=== PATIENT | female | born 1970 | race Caucasian/White ===

== ENCOUNTER 2022-09-09 16:05 | Outpatient (CLI) | payer BC, SELFPAY ==
--- NOTE | ~2022-09-09 | MR_ITS ---
EXAMINATION: MR cervical spine wo con DATE: 09/09/2022 16:44 INDICATION: Neck pain. TECHNIQUE: Magnetic resonance imaging (MRI) of the cervical spine was performed without intravenous c ontrast. Sequences included sagittal T2-weighted FSE, sagittal T2-weighted FS FSE, sagittal T1-weight ed FSE, axial MERGE, and axial T2-weighted FSE. COMPARISON: Cervical spine radiographs 01/12/2005 FINDINGS: There is 5 degrees dextrocurvature of cervicothoracic spine. Vertebral body heights are nor mal. There is mildly decreased disc height at C4-C5 and moderately decreased disc height at C5-C6 and C6-C7. The spinal cord signal intensity is normal. The following disc levels are specifically discus sed: C2-C3: There is a central protrusion. There is no uncovertebral joint osteoarthritis. There is modera te bilateral facet joint osteoarthritis. There is no neural foraminal stenosis. There is no central c anal stenosis. C3-C4: There is a central protrusion. There is mild bilateral uncovertebral joint osteoarthritis. The re is severe right and moderate left facet joint osteoarthritis. There is mild right neural foraminal stenosis. There is mild central canal stenosis. C4-C5: The disc is bulging. There is mild bilateral uncovertebral joint osteoarthritis. There is mild bilateral facet joint osteoarthritis. There is mild right neural foraminal stenosis. There is mild c entral canal stenosis. C5-C6: The disc is bulging. There is moderate right and severe left uncovertebral joint osteoarthriti s. There is mild bilateral facet joint osteoarthritis. There is mild right and moderate left neural f oraminal stenosis. There is mild central canal stenosis. C6-C7: The disc is bulging. There is mild bilateral uncovertebral joint osteoarthritis. There is zaheer re bilateral facet joint osteoarthritis. There is mild bilateral neural foraminal stenosis. There is mild central canal stenosis. C7-T1: The disc does not extend beyond the endplate margin. There is no uncovertebral joint osteoarth ritis. There is mild bilateral facet joint osteoarthritis. There is no neural foraminal stenosis. The re is no central canal stenosis. IMPRESSION: 1. Moderate cervical spondylosis. Reviewed, dictated and finalized at location E. HI DEVELOPER
== END 2022-09-09 16:06 ==
DX: M47.892 Other spondylosis, cervical region (principal)
CPT/HCPCS: 72141

== ENCOUNTER → 2023-02-27 13:22 | Outpatient (CLI) | payer BC, SELFPAY ==
--- NOTE | ~2023-02-27 | US_ITS ---
EXAMINATION: US pelvic complete w TV DATE: 02/27/2023 13:56 INDICATION: Endometrial hyperplasia. Postmenopausal bleeding. Comparison:No prior studies for comparison. TECHNIQUE: Multiple transabdominal and endovaginal sonographic images of the pelvis performed. FINDINGS: The uterus measures 5.8 x 2.5 x 3.1 cm. The endometrial complex measures 4 mm. The right ovary measures 1.8 x 1.6 x 1.6 cm and the left ovary measures 2.6 x 1.3 x 1.3 cm. There ar e small follicles in each ovary. Normal doppler signal in both ovaries. There is no free fluid in the pelvis. There are no abnormal masses seen on either side. IMPRESSION: 1. Unremarkable pelvic ultrasound. Endometrium measures 4 mm. Reviewed, dictated and finalized at location B.
== END ==
PROVIDERS: PCP Nurse Practitioner Family; Visit Provider Nurse Practitioner Family
DX: N85.00 Endometrial hyperplasia, unspecified (principal); N95.1 Menopausal and female climacteric states
CPT/HCPCS: 76830; 76856

== ENCOUNTER 2025-01-13 01:38 | Day surgery (SDC) | payer OTHER, SELFPAY ==
[2025-01-07 15:01] VITALS: BMI 22.8
--- NOTE | 2025-01-07 15:09 | PC.NURSE ---
Report to the Outpatient Waiting Room, entrance under the green pavilion located off [facility], at time _1030_ on date _[id number]_. Planned Procedure Time: _1230_.? Time changes happen often and if your time is changed the preop area will call you the afternoon before. - You and your visitor will be asked to self-screen and do not enter if you have any COVID symptoms. Please call surgeon if you need to reschedule. - A mask is optional within the hospital at this time. Patients may have clear liquids (water, carbonated beverages, clear teas, apple juice) until 3 hours prior to surgery with a maximum of 20 ounces. - No food from midnight until time of surgery and no smoking, or chewing tobacco (or any form of nicotine). No chewing gum, candy or mints. Take only the following medications with a SIP of water on the morning of surgery: ___Flonase____ DO NOT STOP ANY OF YOUR OTHER PRESCRIPTION MEDICATIONS PRIOR TO SURGERY EXCEPT THE FOLLOWING Hold all vitamins and supplements for 3 days per anesthesiologist. Medications to discontinue per physician Please call Dr German and ask if need to hold Ibuprofen and Meloxicam. Date to take last krma___[phone]____ Please no make-up, nail yoruba, hairspray, perfume, deodorant, or body powder the day of surgery.? No jewelry (including any body piercings) or valuables the day of surgery, leave them at home.? Please take a shower or bath the night before, or the morning of, surgery with an antibacterial soap.? Wear comfortable, loose fitting clothing.? - Jewelry must be removed prior to entering the operating room.? Rings and piercings that are not removed may be cut off. - The hospital will not accept responsibility for valuables.? - Please leave all valuables, including medications, at home the day of surgery. If you are going home after surgery, a licensed sales route driver must drive you home.? - NO public transportation without another adult if you receive anesthesia. - We recommend that an adult stay with you for 24 hours following discharge. - We also recommend that you do not drive, make important decision, drink alcoholic beverages, or take any drugs that were not prescribed by your health care provider for at least 24 hours after your discharge time. Follow any additional instructions given to you from your surgeon. Telephone instructions given to ___Amanda__and asked if any additional questions and then verbalized understanding. Patient advised to call surgeon office or pre surgery nurse liaison [phone] if any additional questions.
--- OUTSIDE RECORDS SUMMARY | 2025-01-13 01:41 | XMS_ITS | Clinical Summary ---
Author Organization [facility] Address [address] [place] [address] Phone Care Team Providers Care Manager Environmental Affairs Name Role Phone EFRA GROSS, ODIN Castro Primary Care Provider [phone] Reason for Visit and Chief Complaint CHART UPDATE Problems Includes: Problems addressed during this encounter and other active Problems All Visits Onset Date Resolved Date Provider Condition S tatus Common Migraine Without Aura 11/04/2014 BLANCA HAYWOOD RN Chandana P BC Active Last Documented On 5 9:04AM ; [facility] Plan of Treatment No Plan of Treatment Recorded Assessments Includes: Assessments from this encounter No Assessments Recorded Medical Equipment - Implanted Devices Includes: Current Devices No Medical Equipment Recorded Medications Includes: Medications discussed during this encounter and other current Medications Current Medications (continue as prescribed) Topamax 200 MG OR TABS 11/03/2014 Provider: Diagnosis: Last Documented On 11/03/2014 9:32AM By TANIA OLIVO ; [facility] Past Medications on file Fluconazole 150MG Oral Tablet 12/21/2017 - 12/25/2017 Provider: BLANCA FRAZIER Diagnosis: Acute sinusitis, unspecified 1 daily Pt. is to take 1 now and then repeat in 3 days Last Documented On 8 4:01PM By BLANCA MARIO ; [facility] Azithromycin 250MG Oral Tablet 12/21/2017 - 12/31/2017 Provider: BLANCA MILLER Diagnosis: Acute sinusitis, unspecified TAKE 2 TABS TODAY W/FOOD, TH EN 1 TAB DAILY W/FOOD DIRECTED Last Documented On 8 4:01PM By BLANCA MARIO ; [facility] Fluconazole 150MG Oral Tablet 03/10/2017 - 03/12/2017 Provider: BLANCA HAYWOOD RN OPAL Diagnosis: Acute vaginitis 1 daily Pt. is to take 1 day 4 and 1 tab day 7 Last Documented On 7 1:58PM By BLANCA KEARNS ; [facility] MetroNIDAZOLE 500MG Oral Tablet 03/10/2017 - 03/17/2017 Provider: BLANCA HAYWOOD RN OPAL Diagnosis: Acute vaginitis One tablet twice a day ONE T WICE DAILY WITH FOOD NO ETOH Last Documented On 7 12:52PM By BLANCA KEARNS ; [facility] Fluconazole 150 MG Tablet 07/26/2016 - 07/30/2016 Prov ider: BLANCA HAYWOOD RN OPAL Diagnosis: Acute vaginitis 1 daily Pt. is to take 1 now and then repeat in 3 days Last Documented On 6 8:54AM By BLANCA KEARNS ; [facility] Fluconazole 150 MG Tablet 12/31/2014 - 01/04/2015 Provider: BLANCA HAYWOOD RN OPAL Diagnosis: CANDIDAL VULVOVA GINITIS as directed TAKE ONE TAB EVERY OTHER DAY X 3 Last Documented On 5 3:49PM By BLANCA KEARNS ; [facility] Ondansetron 4 MG Tablet Dispersible 12/31/2014 - 01/30/2015 Provider: JULIANN KEARNS Diagnosis: NAUSEA WITH VOMI TING 1 po q 8 hrs prn Last Documented On 5 1:54PM By JULIANN KEARNS ; [facility] medroxyPROGESTERone Acetate 2.5 MG OR TABS 11/04/2014 - 02/02/2015 Provider: BLANCA HAYWOOD RN OPAL Diagnosis: Sympt [place] PLEASE DISPENSE FROM $4 LIST THANKS Last Documented On 5 9:03AM By BLANCA MARIO ; [facility] Evamist 1.53 MG/SPRAY TD SOLN 11/04/2014 - 01/18/2015 Provider: BLANCA HAYWOOD RN OPAL Diagnosis: Sympt Fem [place] 1 SPRAY TO INNER FORARM ONCE DAILY DIRECTED Last Documented On 5 9:03AM By BLANCA KEARNS ; [facility] Flagyl 500 MG OR TABS 12/09/2013 - 12/16/2013 Provider : JULIANN MARIO Diagnosis: VAGINITIS NOS Last Documented On 4 10:42AM By JULIANN MARIO ; [facility] Lotrisone 1-0.05% EX CREA 05/20/2013 - 07/19/2013 Prov ider: JULIANN FRAZIER-BC Diagnosis: Apply externally to affected area TID Last Documented On 3 2:54PM By JULIANN MARIO ; [facility] Femhrt 1/5 1-5 MG-MCG OR TABS 08/24/2012 - 02/20/2013 Provider: JULIANN MARIO Diagnosis: Last Documented On 2 3:21PM By JULIANN MARIO ; [facility] Terazol 7 0.4% VA CREA 06/22/2012 - 07/22/2012 Provide r: JULIANN FRAZIER-BC Diagnosis: Insert one applicator vagina lly q hs x 7 nocs - ok to substitute if non-formulary Last Documented On 2 2:36PM By JULIANN MARIO ; [facility] Diflucan 150 MG OR TABS 06/22/2012 - 07/22/2012 Provid er: JULIANN FRAZIER-PAUL Diagnosis: Take one dose po x 1 and repeat in 3 days Last Documented On 2 2:36PM By JULIANN MARIO ; [facility] Flagyl 500 MG OR TABS 06/11/2011 - 06/18/2011 Provider : JULIANN MARIO Diagnosis: Last Documented On 1 11:21AM By JULIANN MARIO ; [facility] Diflucan 150 MG OR TABS 02/17/2010 - 03/19/2010 Provid er: JULIANN FRAZIER-BC Diagnosis: take one po x 1 - may repeat in 3 days if needed . Last Documented On 0 4:46PM By JULIANN MARIO ; [facility] Alcortin A 1-2-1% EX GEL 01/28/2010 - 04/28/2010 Provi mer: [facility]-BC,CNM Diagnosis: Apply to affected area 3-4 x day Last Documented On 01/28/2010 2:04PM By CORONA HOLLOWAY ; [facility] Medications Administered Includes: Administered Medications from this encounter No Administered Medications Recorded Results Includes: Results discussed during this encounter No Results Recorded For Specified Dates History of Present Illness Includes: History of Present Illness from this encounter No History of Present Illness Recorded Social History No Social History Recorded - Smoking Status Unknown Procedures and Surgical History Surgical History Last Updated Surgical / procedural history TONSILECTO MY 11/03/2014 Last Documented On 7 4:01PM ; [facility] Medical History Includes: Medical History addressed during this encounter Description Last Updated History of menopause 11/03/2014 Last Documented On 7 4:01PM ; [facility] 0 11/03/2014 Last Documented On 7 4:01PM ; [facility] Last mammogram date: 09/23/2013 11/03/19 15 Last Documented On 7 4:01PM ; [facility] Last pap smear date 05/05/2014 11/03/2014 Last Documented On 7 4:01PM ; [facility] Result: normal 11/03/2014 Last Documented On 7 4:01PM ; [facility] History of Pap smear done 07/09/2014 Last Documented On 7 4:01PM ; [facility] Not using contraception 10/28/2014 Last Documented On 7 4:01PM ; [facility] Result: normal 10/28/2014 Last Documented On 7 4:01PM ; [facility] LMP: 07/21/2014 10/28/2014 Last Documented On 7 4:01PM ; [facility] Family History Includes: Family History addressed during this encounter Description Last Updated No family history of malignant female br east neoplasm 09/05/2011 Last Documented On 7 4:01PM ; [facility] No family history of malignant neoplasm of the large intestine 09/05/2011 Last Documented On 7 4:01PM ; [facility] No family history of malignant neoplasm of the ovary 09/05/2011 Last Documented On 7 4:01PM ; [facility] Review of Systems Includes: Review of Systems from this encounter No Review of Systems Recorded Mental Status Includes: Mental Status from this encounter No Mental Status Recorded Functional Status Includes: Functional Status from this encounter No Functional Status Recorded Physical Exam Includes: Physical Exam from this encounter No Physical Exam Recorded Allergies Includes: Active Allergies Substance Type Reaction Onset Date Resolved Date Statu s Codeine Allergy Nausea, Vomiting , Diarrhea / Diarrheal disorder, BREAK INTO A SWEAT 11/03/2014 Active Last Documented On 5 9:33AM ; [facility] Encounters Encounter Provider Location Date Check-In Time Check-Out Time Diagnosis CHART UPDATE BLANCA HAYWOOD RN [facility] 09/26/2017 4:01PM 11:59PM Insurance Includes: Active Insurance Policies Plan Name Member ID Group # Subscriber Relationship Effect farida Dates 1 - [facility] [id number] AMI CARRILLO Self Clinical Notes Includes: Clinical Notes from this encounter No Clinical Notes Recorded
--- OUTSIDE RECORDS SUMMARY | 2025-01-13 01:41 | XMS_ITS ---
Author Organization [facility] Address [address] [place] [address] Care Team Providers Care Outside Machinist Helper Name Role Phone zzzzMigration, zzzzProvider Unavailable Unav ailable REASON FOR VISIT EMR-[facility]quiles Encounters Encounter Location Date Provider Diagnosis [facility] [address] [place] [address] 2023 zzzzProvider zzzzMigration Plan Of Treatment No Information Progress Notes * CARRILLOPaige KempDOB:1970 ( 54 yo F)Acc No.[id number] Patient: S Paige PENN :1970 A ge:53 Y S ex:Female Phone: Address:[address] [place] [address], [phone] Subjective: * Chief Complaints: * E MR-Aquiles * Medical History: * Surgical History: * Hospitalization/Major Diagno stic Procedure: * Medications: Objective: * Vitals: * Physical Examination: Assessment: Plan: * Treatment: * Procedure Codes: * true * Date: Generated for Yobani contreras/Rachelle/eTransmitting on: 0 01/13/2025 01:41 AM CDT
--- OUTSIDE RECORDS SUMMARY | 2025-01-13 01:41 | XMS_ITS ---
Author Organization [facility] Address [address], [place] [address] Care Team Providers Care Poultry Husbandman Name Role Phone zzzzMigration, zzzzProvider Unavailable Unav ailable Allergies Allergen (clinical drug ingredient) Drug/Non Drug Allergy documented on EMR Reaction Allergy Type Onset Date Status codeine Codeine Unknown Drug Allergy 10/21/2021 Active REASON FOR VISIT [facility] Medic[place] Medication SIG (Take, Route, Fr equency, Duration) Notes Start Date End Date Status Phentermine HCl 37.5 MG take 1 tablet (3 7.5 mg) by oral route once daily before breakfast Oral 1 Active Topamax 100 MG take 1 tablet (100 m g) by oral route 2 times per day Oral 2 Active Encounters Encounter Location Date Provider Diagnosis [facility] [address], [place] [address] 07/30/2023 zzzzProvider zzzzMigration Plan Of Treatment No Information Progress Notes * Paige CARRILLODOB:1970 ( 54 yo F)Acc No.[id number]:07/30/2023 Patient: S Paige PENN :1970 A ge:53 Y S ex:Female Phone: Address:[address] [place] [address], [phone] Subjective: * Chief Complaints: * E MR-Aquiles * Medical History: * Surgical History: A nkle surgery; [id number] augmentation; 2021-10-21 * Hospitalization/Major Diagno stic Procedure: * Family History: F ather: Hypertension Notes: alive , Stroke Notes: alive . M other: Heart Disease Notes: alive , Hypothyroidism Notes: alive . * Social History: M igrated Social History: M igrated Social History: :: No Children , Marital Status :: Single , Substance Use :: Alcohol,socially :: Light , Substance Use :: Caffeine :: Light , Substance Use :: Denies illicit substance abuse :: Never , Substance Use :: Tobacco :: Never. * Medications: T akingPhentermine HCl 37.5 MG Tablet take 1 tablet (37.5 mg) by oral route once daily before breakfast Oral 1 Topamax 100 MG Tablet take 1 tablet (100 mg) by oral route 2 times per day Oral 2 Taking Phentermine HCl 37.5 MG Tablet take 1 tablet (37.5 mg) by oral route once daily before breakfast Oral 1 Taking Topamax 100 MG Tablet take 1 tablet (100 mg) by oral route 2 times per day Oral 2 * Allergies: C odeine: Allergy - Onset Date 10/21/2021 Objective: * Vitals: * Physical Examination: Assessment: Plan: * Treatment: * Procedure Codes: * true * Date: Generated for Yobani contreras/Rachelle/Alyce on: 0 01/13/2025 01:41 AM CDT
--- OUTSIDE RECORDS SUMMARY | 2025-01-13 01:41 | XMS_ITS | Clinical Summary ---
Author Organization [facility] Address [address] [place] [address] Care Team Providers Care Trailer Truck Driver Name Role Phone Thierno Lucero MD Unavailable [phone] Sayra Mcdonough MD Unavailable [phone] Leydi Montano DO Primary Care Provider [phone] Source Comments [facility],non-owned Affiliates and Associated Physician Practices is amultiple site organization consisting of ambulatory clinics and hospital sitesin [place], [place], [place] and [place]. This disclosure is being madepursuant to the Care Everywhere program and may not contain all information available regarding this patient. Last updated 18.[facility] Allergies No known active allergies Medications * Be aware that medications may not be up to date on this document. Alwaysverify current medications with the patient. Medication Sig Dispensed Refills Start Date End Date Status Probiotic Product (PROBIOTIC DAILY) capsule Take 2 Caps by mouth once daily 04/13/2016 Active domperidone (MOTILIUM) 10 mg tablet Take 1 Tab by mouth once daily 04/13/2016 Active vitamin D3-cholecalciferol (CHOLECACIFEROL) 1000 UNITS tablet Take 2.5 Tabs by mouth once daily 04/13/2016 Active Pyridoxine HCl (B-6) 100 MG Take 1 Tab by mouth once daily 04/13/2016 Active fluticasone propionate (Flonase) 50 MCG/ACT nasal spray SHAKE LIQUID AND USE 1 SPRAY IN EACH NOSTRIL TWICE DAILY 06/15/2022 Active montelukast (Singulair) 10 MG tablet Take 1 (one) tablet by mouth at bedtime 05/10/2022 Active Multiple Vitamin (Multi-Vitamins) TABS Take 1 (one) tablet by mouth once daily Active Cyanocobalamin (B-12 Compliance Injection) 1000 MCG/ML 12/07/2022 Active Vyvanse 40 MG capsule Take 50 mg by mouth once daily 08/18/2023 Active meloxicam (Mobic) 15 MG tablet Take 50 mg by mouth once daily 09/12/2023 Active rimegepant (Nurtec ODT) 75 MG tablet Take 1 tablet every other day for headache prevention. 16 tablet 3 11/01/2023 Active traZODone (Desyrel) 100 MG tablet Take 1 (one) tablet by mouth nightly as needed For insomnia. 12/30/2023 Active traMADol HCl 100 MG TABS TAKE 1 TABLET BY MOUTH TWICE DAILY NEEDED FOR SEVERE PAIN 09/13/2023 Active Progesterone 100 MG capsule Take 1 (one) capsule by mouth every evening 01/07/2024 Active lidocaine (Xylocaine) 5 % ointment APPLY TOPICALLY THREE TIMES DAILY NEEDED 09/22/2023 Active loratadine (Claritin) 10 MG tablet 08/29/2022 Active esomeprazole (NexIUM) 20 MG capsule Take 1 (one) capsule by mouth once daily Active ibuprofen (Motrin) 600 MG tablet 08/09/2022 Active Biotin 10 MG 07/22/2023 Active Active Problems Problem Noted Date Diagnosed Date Abnormal thyroid blood test 04/13/2016 Gastroparesis 04/13/2016 Premature ovarian failure 04/13/2016 Chronic cluster headache, not intractable 2015 Encounters Date Type Department Care Team Description 01/10/[address] [phone] Zeke Payan MD Refill Request 11/01/2024 8:00 AM SENIOR CARE SPECIALIST Procedure visit [address] [phone] Zeke Payan MD Intractable chronic migraine without aura and without status migrainosus from Last 3 Months Family History Medical History Relation Name Comments Heart Disease Brother 1 Asthma Brother 2 Stroke Father Heart Disease Mother Osteoporosis Mother Stroke Mother Thyroid Disease Mother hypothyroidi sm Diabetes Neg Hx Relation Name Status Comments Brother 1 Brother 2 Father Mother Social History Tobacco Use Types Packs/Day Years Used Date Smoking Tobacco: Never Tobacco Cessation:Counseling Given: Not Answered Alcohol Use Standard Drinks/Week Comments Yes 3 (1 standard drink = 0.6 oz pur e alcohol) Sex and Gender Information Value Date Recorded Sex Assigned at Not on file Gender Identity Not on file Sexual Orientation Not on file Last Filed Vital Signs Vital Sign Reading Time Taken Comments Blood Pressure 130/80 11/01/2023 2:45 PM SENIOR CARE SPECIALIST Pulse 77 04/18/2024 8:43 AM CDT Temperature 37 C (98.6 F) 11/01/2023 2:45 PM SENIOR CARE SPECIALIST Respiratory Rate 16 11/01/2024 8:11 AM SENIOR CARE SPECIALIST Oxygen Saturation 92% 04/18/2024 8:43 AM CDT Inhaled Oxygen Concentration - - Weight 67.6 kg (149 lb) 11/01/2024 8:11 AM SENIOR CARE SPECIALIST Height 172.7 cm (5' 8 ) 11/01/2024 8:11 AM SENIOR CARE SPECIALIST Body Mass Index 22.66 11/01/2024 8:11 AM SENIOR CARE SPECIALIST Plan of Treatment Upcoming Encounters Date Type Department Care Team (Late st Contact Info) Description 01/24/2025 8:00 AM CDT Procedure visit [facility] [address] [facility] [place] [address] [place] [phone] [place] [id number] [id number] Health Maintenance Due Date Last Done Comments COLOGUARD (AGES 45-75) - COLON CA SCREENING [address] COLONOGRAPHY - COLON CA SCREENING 1972 FIT - COLON CA SCREENING 1972 FLEX SIG - COLON CA SCREENING 1972 LIPID TESTING 1972 PAP SMEAR 1972 HIV SCREENING 1987 HEPATITIS C SCREENING 07/25/1990 DTAP/TDAP/TD VACCINES (1 - Tdap) 1991 HEPATITIS B VACCINE (1 of 3 - 19+ 3-dose series) 1991 PNEUMOCOCCAL VACCINE 50+ (1 of 1 - PCV) 2022 ZOSTER VACCINE (1 of 2) 2022 COVID-19 VACCINE (1 - 2024-25 season) 2024 DEPRESSION SCREENING 10/09/2024 INFLUENZA VACCINE (Season Ended) 2025 06/23/2023, 07/16/2022, 09/14/2021, Additional history exists MAMMOGRAM 09/21/2025 09/21/2023, 09/08, 06/04/2022, Additional history exists COLONOSCOPY - COLON CA SCREENING 05/23/2034 05/23/2024 Colorectal Cancer Screening 05/23/2034 HIB VACCINE Aged Out No longer eligi ble based on patient's age to complete this topic HPV VACCINE Aged Out No longer eligi ble based on patient's age to complete this topic MENINGOCOCCAL (Group B) VACCINE SHARED DECISION-MAKING Aged Out No longer eligible based on patient's age to complete this topic MENINGOCOCCAL GROUPS A/C/Y/W VACCINE Aged Out No longer eligible based on patient's age to complete this topic Care Teams Trailer Truck Driver Relationship Specialty Start Date End Date Leydi Montano DO [address] [facility] [address] [place], [place] [id number] PCP - General Family Medicine 05/12/22 Thierno Lucero MD [address] [place] [address] Gastroenterology 08/24/16 [place] [address] [facility] [place] [address] [place] [address] Endocrinology 08/24/16
--- OUTSIDE RECORDS SUMMARY | 2025-01-13 01:41 | XMS_ITS | Clinical Summary ---
Author Organization [facility] Address [address] [place] [address] Phone Care Team Providers Care Bodywork Therapist Name Role Phone EFRA GROSS, ODIN Castro Primary Care Provider [phone] Reason for Visit and Chief Complaint CHART UPDATE Problems Includes: Problems addressed during this encounter and other active Problems All Visits Onset Date Resolved Date Provider Condition S tatus Common Migraine Without Aura 11/04/2014 BLANCA HAYWOOD RN Chandana [facility] Active Last Documented On 5 9:04AM ; [facility] Plan of Treatment No Plan of Treatment Recorded Assessments Includes: Assessments from this encounter No Assessments Recorded Medical Equipment - Implanted Devices Includes: Current Devices No Medical Equipment Recorded Medications Includes: Medications discussed during this encounter and other current Medications New / Renewed during this visit BLANCA FRAZIER BC on 12/31/2014 Fluconazole 150 MG Tablet Provider: FREDY FRAZIER BC 4 day supply: 3 tablet, 0 refills Diagnosis: CANDIDAL VULVOVAGINITIS as directed TAKE ONE TAB ALLISON RY OTHER DAY X 3 Pharmacy: [place] [address] [address] [facility] [phone] - Last Documented On 5 3:49PM By BLANCA MARIO ; [facility] Current Medications (continue as prescribed) Topamax 200 MG OR TABS 11/03/2014 Provider: Diagnosis: Last Documented On 11/03/2014 9:32AM By TANIA OLIVO ; [facility] Past Medications on file Fluconazole 150MG Oral Tablet 12/21/2017 - 12/25/2017 Provider: BLANCA FRAZIER BC Diagnosis: Acute sinusitis, unspecified 1 daily Pt. is to take 1 now and then repeat in 3 days Last Documented On 8 4:01PM By BLANCA HAYWOOD ISHAAN ; [facility] Azithromycin 250MG Oral Tablet 12/21/2017 - 12/31/2017 Provider: BLANCA HAYWOOD RN OPAL Diagnosis: Acute sinusitis, unspecified TAKE 2 TABS TODAY W/FOOD, TH EN 1 TAB DAILY W/FOOD DIRECTED Last Documented On 8 4:01PM [facility] Fluconazole 150MG Oral Tablet 03/10/2017 - 03/12/2017 Provider: BLANCA HAYWOOD RN OPAL Diagnosis: Acute vaginitis 1 daily Pt. is to take 1 day 4 and 1 tab day 7 Last Documented On 7 1:58PM By BLANCA KEARNS ; [facility] MetroNIDAZOLE 500MG Oral Tablet 03/10/2017 - 03/17/2017 Provider: BLANCA HAYWOOD RN OPAL Diagnosis: Acute vaginitis One tablet twice a day ONE T WICE DAILY WITH FOOD NO ETOH Last Documented On 7 12:52PM By BLANCA KEARNS ; [facility] Fluconazole 150 MG Tablet 07/26/2016 - 07/30/2016 Prov ider: BLANCA HAYWOOD RN OPAL Diagnosis: Acute vaginitis 1 daily Pt. is to take 1 now and then repeat in 3 days Last Documented On 6 8:54AM By BLANCA HAYWOOD ISHAAN ; [facility] Ondansetron 4 MG Tablet Dispersible 12/31/2014 - 01/30/2015 Provider: JULIANN KEARNS Diagnosis: NAUSEA WITH VOMI TING 1 po q 8 hrs prn Last Documented On 5 1:54PM By JULIANN [facility]IGUEZ [facility] ; [facility] medroxyPROGESTERone Acetate 2.5 MG OR TABS 11/04/2014 - 02/02/2015 Provider: BLANCA HAYWOOD RN OPAL Diagnosis: Sympt [place] PLEASE DISPENSE FROM $4 LIST THANKS Last Documented On 5 9:03AM By BLANCA HAYWOOD ISHAAN ; [facility] Evamist 1.53 MG/SPRAY TD SOLN 11/04/2014 - 01/18/2015 Provider: BLANCA HAYWOOD RN NP BC Diagnosis: Sympt Fem [place] 1 SPRAY TO INNER FORARM ONCE DAILY DIRECTED Last Documented On 5 9:03AM By BLANCA HAYWOOD OPAL- ; [facility] Flagyl 500 MG OR TABS 12/09/2013 - 12/16/2013 Provider : JULIANN KEARNSBC Diagnosis: VAGINITIS NOS Last Documented On 4 10:42AM By JULIANN MARIO ; [facility] Lotrisone 1-0.05% EX CREA 05/20/2013 - 07/19/2013 Prov ider: JULIANN FRAZIER-BC Diagnosis: Apply externally to affected area TID Last Documented On 3 2:54PM By JULIANN MARIO ; [facility] Femhrt 1/5 1-5 MG-MCG OR TABS 08/24/2012 - 02/20/2013 Provider: JULIANN MARIO Diagnosis: Last Documented On 2 3:21PM By JULIANN MARIO ; [facility] Terazol 7 0.4% VA CREA 06/22/2012 - 07/22/2012 Provide r: JULIANN FRAZIER-BC Diagnosis: Insert one applicator vagina lly q hs x 7 nocs - ok to substitute if non-formulary Last Documented On 2 2:36PM By JULIANN MARIO ; [facility] Diflucan 150 MG OR TABS 06/22/2012 - 07/22/2012 Provid er: JULIANN FRAZIER-BC Diagnosis: Take one dose po x 1 and repeat in 3 days Last Documented On 2 2:36PM By JULIANN MARIO ; [facility] Flagyl 500 MG OR TABS 06/11/2011 - 06/18/2011 Provider : JULIANN MARIO Diagnosis: Last Documented On 1 11:21AM By JULIANN MARIO ; [facility] Diflucan 150 MG OR TABS 02/17/2010 - 03/19/2010 Provid er: JULIANN FRAZIER-BC Diagnosis: take one po x 1 - may repeat in 3 days if needed . Last Documented On 0 4:46PM By JULIANN RODRIGUEZ [facility] ; [facility] Alcortin A 1-2-1% EX GEL 01/28/2010 - 04/28/2010 Provi mer: [facility] Diagnosis: Apply to affected area 3-4 x day Last Documented On 01/28/2010 2:04PM By CORONA HOLLOWAY ; [facility] Medications Administered Includes: Administered Medications [...] history TONSILECTO MY 11/03/2014 Last Documented On 5 3:47PM ; [facility] Medical History Includes: Medical History addressed during this encounter Description Last Updated History of menopause 11/03/2014 Last Documented On 5 3:47PM ; [facility] 0 11/03/2014 Last Documented On 5 3:47PM ; [facility] Last mammogram date: 09/23/2013 11/03/19 15 Last Documented On 5 3:47PM ; [facility] Last pap smear date 05/05/2014 11/03/2014 Last Documented On 5 3:47PM ; [facility] Result: normal 11/03/2014 Last Documented On 5 3:47PM ; [facility] History of Pap smear done 07/09/2014 Last Documented On 5 3:47PM ; [facility] Not using contraception 10/28/2014 Last Documented On 5 3:47PM ; [facility] Result: normal 10/28/2014 Last Documented On 5 3:47PM ; [facility] LMP: 07/21/2014 10/28/2014 Last Documented On 5 3:47PM ; [facility] Family History Includes: Family History addressed during this encounter No Family History Recorded Review of Systems Includes: Review of Systems [...] Active Last Documented On 5 9:33AM ; [facility] Encounters Encounter Provider Location Date Check-In Time Check-Out Time Diagnosis CHART UPDATE BLANCA HAYWOOD RN [facility] 12/31/2014 3:47PM 11:59PM Insurance Includes: Active Insurance Policies Plan Name Member ID Group # Subscriber Relationship Effect farida Dates 1 - [facility] [id number] AMI CARRILLO Self Clinical Notes Includes: Clinical Notes from this encounter No Clinical Notes Recorded
--- OUTSIDE RECORDS SUMMARY | 2025-01-13 01:42 | XMS_ITS | Clinical Summary ---
Author Organization [facility] Address [address] 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
--- OUTSIDE RECORDS SUMMARY | 2025-01-13 01:42 | XMS_ITS ---
Author Organization [facility] Address [address] [place] [address] Phone Care Team Providers Care Apprise Counselor Name Role Phone EFRA GROSS, ODIN Castro Primary Care Provider [phone] Problems Includes: Active, inactive, and resolved Problems All Visits Onset Date Resolved Date Provider Condition S tatus Common Migraine Without Aura 11/04/2014 BLANCA HAYWOOD RN [facility] P Active Last Documented On 5 9:04AM ; [facility] Plan of Treatment Findings Encounter Date Since pt. states h/o recurre nt yeast, we will go ahead and treat pt. and partner with diflucan and if no improvement, possibly work up for diabetes. Ami is agreeable to this plan PROBLEM VISIT with JULIANN RODRIGUEZ [facility]- 12/22/2011 Last Documented On 2 9:36AM ; [facility] Instructions to patient Instructions for patient : K eep the area around the vulva dry. Allow the area to have exposure to air. Avoid irritants such as fabric softeners and perfumed soaps.~ Last Documented On 3 8:19AM ; [facility] Advised d/c scented bath pro ducts Last Documented On 3 8:19AM ; [facility] Instructions For Patient: pe lvic rest until test results back Last Documented On 3 8:18AM ; [facility] Instructions for patient : K eep the area around the vulva dry. Allow the area to have exposure to air. Avoid irritants such as fabric softeners and perfumed soaps.~ Last Documented On 2 9:26AM ; [facility] Advised d/c scented bath pro ducts Last Documented On 2 9:26AM ; [facility] Instructions for patient : K eep the area around the vulva dry. Allow the area to have exposure to air. Avoid irritants such as fabric softeners and perfumed soaps.~ Last Documented On 1 8:37AM ; [facility] Advised d/c scented bath pro ducts Last Documented On 1 8:37AM ; [facility] Instructions for patient : K eep the area around the vulva dry. Allow the area to have exposure to air. Avoid irritants such as fabric softeners and perfumed soaps.~ Last Documented On 1 8:22AM ; [facility] Advised d/c scented bath pro ducts Last Documented On 1 8:22AM ; [facility] Education and Decision Aids were provided during visit for: Patient counseling : STD pre vention. I discussed with the patient that condoms can reduce the chance of getting an STD but not eliminate it. Increased exposure from multiple sex partners also discussed Last Documented On 3 8:18AM ; [facility] Candidiasis Vulvovaginitis I nformation Sheet Given Last Documented On 2 9:26AM ; [facility] Candidiasis Vulvovaginitis I nformation Sheet Given Last Documented On 1 8:36AM ; [facility] Assessments Includes: Assessments for all patient encounters Findings Encounter Date Symptomatic menopause CONSULTATION with BLANCA HAYWOOD RN [facility] 11/03/2014 Last Documented On 5 9:07AM ; [facility] Secondary amenorrhea CHART UPDATE with BLANCA PASCAL RN [facility] 10/28/2014 Last Documented On 5 11:52AM ; [facility] Polina albicans vulvovaginitis PROBLEM VISIT wi JULIANN RODRIGUEZ [facility] 12/22/2011 Last Documented On 2 9:36AM ; [facility] Polina albicans vulvovaginitis PROBLEM VISIT wi JULIANN RODRIGUEZ [facility] 09/05/2011 Last Documented On 1 8:37AM ; [facility] Polina albicans vulvovaginitis PROBLEM VISIT wi JULIANN RODRIGUEZ [facility]- 06/09/2011 Last Documented On 1 8:37AM ; [facility] Instructions Includes: Instructions for all patient encounters Instructions to patient Instructions for patient : K eep the area around the vulva dry. Allow the area to have exposure to air. Avoid irritants such as fabric softeners and perfumed soaps.~ Last Documented On 3 8:19AM ; [facility] Advised d/c scented bath pro ducts Last Documented On 3 8:19AM ; [facility] Instructions For Patient: pe lvic rest until test results back Last Documented On 3 8:18AM ; [facility] Instructions for patient : K eep the area around the vulva dry. Allow the area to have exposure to air. Avoid irritants such as fabric softeners and perfumed soaps.~ Last Documented On 2 9:26AM ; [facility] Advised d/c scented bath pro ducts Last Documented On 2 9:26AM ; [facility] Instructions for patient : K eep the area around the vulva dry. Allow the area to have exposure to air. Avoid irritants such as fabric softeners and perfumed soaps.~ Last Documented On 1 8:37AM ; [facility] Advised d/c scented bath pro ducts Last Documented On 1 8:37AM ; [facility] Instructions for patient : K eep the area around the vulva dry. Allow the area to have exposure to air. Avoid irritants such as fabric softeners and perfumed soaps.~ Last Documented On 1 8:22AM ; [facility] Advised d/c scented bath pro ducts Last Documented On 1 8:22AM ; [facility] Education and Decision Aids were provided during visit for: Patient counseling : STD pre vention. I discussed with the patient that condoms can reduce the chance of getting an STD but not eliminate it. Increased exposure from multiple sex partners also discussed Last Documented On 3 8:18AM ; [facility] Candidiasis Vulvovaginitis I nformation Sheet Given Last Documented On 2 9:26AM ; [facility] Candidiasis Vulvovaginitis I nformation Sheet Given Last Documented On 1 8:36AM ; [facility] Medical Equipment - Implanted Devices Includes: Current and historical Devices No Medical Equipment Recorded Medications Includes: Current and historical Medications Current Medications (continue as prescribed) Topamax 200 MG OR TABS 11/03/2014 Provider: Diagnosis: Last Documented On 11/03/2014 9:32AM By TANIA OLIVO ; [facility] Past Medications on file Fluconazole 150MG Oral Tablet 12/21/2017 - 12/25/2017 Provider: BLANCA HAYWOOD RN [facility] Diagnosis: Acute sinusitis, unspecified 1 daily Pt. is to take 1 now and then repeat in 3 days Last Documented On 8 4:01PM By BLANCA KEARNS ; [facility] Azithromycin 250MG Oral Tablet 12/21/2017 - 12/31/2017 Provider: BLANCA HAYWOOD RN [facility] Diagnosis: Acute sinusitis, unspecified TAKE 2 TABS TODAY W/FOOD, TH EN 1 TAB DAILY W/FOOD DIRECTED Last Documented On 8 4:01PM By BLANCA MARIO ; [facility] Fluconazole 150MG Oral Tablet 03/10/2017 - 03/12/2017 Provider: BLANCA FRAZIER Diagnosis: Acute vaginitis 1 daily Pt. is to take 1 day 4 and 1 tab day 7 Last Documented On 7 1:58PM By BLANCA MARIO ; [facility] MetroNIDAZOLE 500MG Oral Tablet 03/10/2017 - 03/17/2017 Provider: BLANCA FRAZIER Diagnosis: Acute vaginitis One tablet twice a day ONE T WICE DAILY WITH FOOD NO ETOH Last Documented On 7 12:52PM By BLANCA MARIO ; [facility] Fluconazole 150 MG Tablet 07/26/2016 - 07/30/2016 Prov ider: BLANCA HAYWOOD RN [facility] Diagnosis: Acute vaginitis 1 daily Pt. is to take 1 now and then repeat in 3 days Last Documented On 6 8:54AM By BLANCA MARIO ; [facility] Fluconazole 150 MG Tablet 12/31/2014 - 01/04/2015 Provider: BLANCA HAYWOOD RN [facility] Diagnosis: CANDIDAL VULVOVA GINITIS as directed TAKE ONE TAB EVERY OTHER DAY X 3 Last Documented On 5 3:49PM By BLANCA MARIO ; [facility] Ondansetron 4 MG Tablet Dispersible 12/31/2014 - 01/30/2015 Provider: JULIANN KEARNS Diagnosis: NAUSEA WITH VOMI TING 1 po q 8 hrs prn Last Documented On 5 1:54PM By JULIANN MARIO ; [facility] medroxyPROGESTERone Acetate 2.5 MG OR TABS 11/04/2014 - 02/02/2015 Provider: BLANCA HAYWOOD RN [facility] BC Diagnosis: Sympt [place] PLEASE DISPENSE FROM $4 LIST THANKS Last Documented On 5 9:03AM By BLANCA MARIO ; [facility] Evamist 1.53 MG/SPRAY TD SOLN 11/04/2014 - 01/18/2015 Provider: BLANCA HAYWOOD RN [facility] BC Diagnosis: Sympt Fem [place] 1 SPRAY TO INNER FORARM ONCE DAILY DIRECTED Last Documented On 5 9:03AM By BLANCA MARIO ; [facility] Flagyl 500 MG OR TABS 12/09/2013 - 12/16/2013 Provider : JULIANN MARIO Diagnosis: VAGINITIS NOS Last Documented On 4 10:42AM By JULIANN MARIO ; [facility] Lotrisone 1-0.05% EX CREA 05/20/2013 - 07/19/2013 Prov ider: JULIANN MARIO Diagnosis: Apply externally to affected area TID Last Documented On 3 2:54PM By JULIANN MARIO ; [facility] Flagyl 500 MG OR TABS 02/07/2013 - 12/09/2013 Provider : JULIANN MARIO Diagnosis: VAGINITIS NOS Last Documented On 4 10:41AM By JULIANN MARIO ; [facility] Femhrt 1/5 1-5 MG-MCG OR TABS 08/24/2012 - 02/20/2013 Provider: JULIANN FRAZIER-BC Diagnosis: Last Documented On 2 3:21PM By JULIANN MARIO ; [facility] Terazol 7 0.4% VA CREA 06/22/2012 - 07/22/2012 Provide r: JULIANN RODRIGUEZ WHNP-BC Diagnosis: Insert one applicator vagina lly q hs x 7 nocs - ok to substitute if non-formulary Last Documented On 2 2:36PM By JULIANN MARIO ; [facility] Diflucan 150 MG OR TABS 06/22/2012 - 07/22/2012 Provid er: JULIANN RODRIGUEZ WHNP-BC Diagnosis: Take one dose po x 1 and repeat in 3 days Last Documented On 2 2:36PM By JULIANN MARIO ; [facility] Diflucan 150 MG OR TABS 12/22/2011 - 06/22/2012 Provid er: JULIANN RODRIGUEZ WHNP-BC Diagnosis: Take one dose po x 1 and one for partner. Last Documented On 2 2:35PM By JULIANN MARIO ; [facility] Terazol 7 0.4% VA CREA 12/22/2011 - 06/22/2012 Provide r: JULIANN Wood JENNIFER WHNP-BC Diagnosis: Insert vaginally q hs x 7 no cs - ok to substitute if non-formulary Last Documented On 2 2:36PM By JULIANN MARIO ; [facility] Terazol 7 0.4% VA CREA 08/31/2011 - 12/22/2011 Provide r: JULIANN RODRIGUEZ WHNP-BC Diagnosis: Insert vaginally q hs x 7 no cs - ok to substitute if non-formulary Last Documented On 2 9:36AM By JULIANN MARIO ; [facility] Flagyl 500 MG OR TABS 06/11/2011 - 06/18/2011 Provider : JULIANN GRIGSBYNP-BC Diagnosis: Last Documented On 1 11:21AM By JULIANN MARIO ; [facility] Terazol 7 0.4% VA CREA 06/09/2011 - 08/31/2011 Provide r: JULIANN FRAZIER-BC Diagnosis: Insert vaginally q hs x 7 no cs - ok to substitute if non-formulary Last Documented On 1 8:42AM By JULIANN MARIO ; [facility] Diflucan 150 MG OR TABS 05/25/2011 - 12/22/2011 Provid er: JULIANN MARIO Diagnosis: Take one dose po x 1 . Last Documented On 2 9:35AM By JULIANN MARIO ; [facility] Lotrisone 1-0.05% EX CREA 06/18/2010 - 05/20/2013 Prov ider: JAYDEN HOLLOWAY ANA MARIA,LACHELLE Diagnosis: Apply externally to affected area TID Last Documented On 3 2:54PM By JULIANN MARIO ; [facility] Diflucan 150 MG OR TABS 02/17/2010 - 03/19/2010 Provid er: JULIANN MARIO Diagnosis: take one po x 1 - may repeat in 3 days if needed . Last Documented On 0 4:46PM By JULIANN MARIO ; [facility] Alcortin A 1-2-1% EX GEL 01/28/2010 - 04/28/2010 Provi mer: JAYDEN HOLLOWAY ANA MARIA,LACHELLE Diagnosis: Apply to affected area 3-4 x day Last Documented On 01/28/2010 2:04PM By CORONA HOLLOWAY ; [facility] Medications Administered Includes: Administered Medications in patient's chart No Administered Medications Recorded Results Includes: Results from 01/14/2024 through 01/13/2025 No Results Recorded For Specified Dates History of Present Illness History of Present Illness not supported for this document type No History of Present Illness Recorded Social History Description Last Updated Alcohol use: 2 drinks or less per day OC C 11/03/2014 Last Documented On 5 9:07AM ; [facility] Non-smoker 11/03/2014 Last Documented On 5 9:07AM ; [facility] Sexually active 11/03/2014 Last Documented On 5 9:07AM ; [facility] Smoking status : Never smoked 02/06/2013 Last Documented On 3 7:19AM ; [facility] Procedures and Surgical History Surgical History Last Updated Surgical / procedural history TONSILECTO MY 11/03/2014 Last Documented On 5 9:07AM ; [facility] Medical History Includes: Medical History in patient's chart Description Last Updated History of menopause 11/03/2014 Last Documented On 5 9:07AM ; [facility] 0 11/03/2014 Last Documented On 5 9:07AM ; [facility] Last mammogram date: 09/23/2013 11/03/19 15 Last Documented On 5 9:07AM ; [facility] Last pap smear date 05/05/2014 11/03/2014 Last Documented On 5 9:07AM ; [facility] Result: normal 11/03/2014 Last Documented On 5 9:07AM ; [facility] History of Pap smear done 07/09/2014 Last Documented On 5 11:52AM ; [facility] Not using contraception 10/28/2014 Last Documented On 5 11:52AM ; [facility] Result: normal 10/28/2014 Last Documented On 5 11:52AM ; [facility] LMP: 07/21/2014 10/28/2014 Last Documented On 5 11:52AM ; [facility] Family History Includes: Family History in patient's chart Description Last Updated No family history of malignant female br east neoplasm 09/05/2011 Last Documented On 1 8:37AM ; [facility] No family history of malignant neoplasm of the large intestine 09/05/2011 Last Documented On 1 8:37AM ; [facility] No family history of malignant neoplasm of the ovary 09/05/2011 Last Documented On 1 8:37AM ; [facility] Review of Systems Review of Systems not supported for this document type No Review of Systems Recorded Mental Status No Mental Status Recorded Functional Status No Functional Status Recorded Physical Exam Physical Exam not supported for this document type No Physical Exam Recorded Immunizations Includes: Immunizations in patient's chart Vaccine Dose # Date Site Reaction(s) Status Source Influenza (Quadrivalent)36 mo.& older PF 0.5ml (SD) 1 06/28/2012 Right Arm Complete (Administered) [facility] Last Documented On 2 3:51PM ; [facility] Influenza (Quadrivalent)36 mo.& older PF 0.5ml (SD) 2 07/17/2013 Other Complete (Administered) [facility] Last Documented On 07/17/2013 4:39PM ; [facility] Note: Flu shot given IM left deltoid; to leragted well; no adverse reaction. Lot #[id number], exp 04/07/14. [employer] analyst Allergies Includes: Active, inactive, and resolved Allergies Substance Type Reaction Onset Date Resolved Date Statu s Codeine Allergy Nausea, Vomiting , Diarrhea / Diarrheal disorder, BREAK INTO A SWEAT 11/03/2014 Active Last Documented On 5 9:33AM ; [facility] Insurance Includes: Active Insurance Policies Plan Name Member ID Group # Subscriber Relationship Effect farida Dates 1 - [facility] [id number] AMI CARRILLO Self Clinical Notes Includes: Signed Clinical Notes starting from 10/28/2022 No Clinical Notes Recorded
--- OUTSIDE RECORDS SUMMARY | 2025-01-13 01:42 | XMS_ITS | Clinical Summary ---
Author Organization [facility] Address [address] [place] [address] Care Team Providers Care Crusher Feeder Name Role Phone Shelly Beard NP Primary Care Provider Allergies Active Allergy Reactions Criticality Noted Date Comments Codeine Nausea only,Vomiting Low Reaction: Nausea, Vomiting, , Reaction: Nausea, Vomiting, Gluten Unknown Low Medications magnesium 100 mg capsule 100 mg. 0 0 12/04/19 15 Active Additional Information Patient taking differently:100 mgoral Daily, Reported on 08/12/2022 calcium (CALCIO SHENG) 500 mg tablet take 1 by Oral route every day 0 07/09/20 12 Active L.rhamn A-191-L.ac-B.zoya-B .merlene (PROBIOTIC) 20 billion cell capsule, sprinkle 2 po q day 0 07/09/20 12 Active Additional Information Patient taking differently: 1 tablet oral Daily, Reported on 08/12/2022 polyethylene glycol (MIRALAX) 17 gram/dose powder take (17G) by oral route every day mixed with 8 oz. water, juice, soda, coffee or tea 0 0 11/24/19 17 Active Additional Information Patient taking differently: oral Daily PRN, Reported on 11/15/2023 cholecalciferol (VITAMIN D3) 5,000 unit tablet take 1 by Oral route every morning 0 0 06/22/20 15 Active Additional Information Patient taking differently: oral 2 times weekly, Reported on 08/12/2022 fluticasone (FLONASE) 50 mcg/actuation nasal spray inhale 1 spray by Intranasal route every day in each nostril BID 1 6 08/26/20 10 Active Additional Information Patient taking differently: each nostril As needed, Reported on 08/12/2022 ondansetron ODT (ZOFRAN-ODT) 4 mg disintegrating tablet DISSOLVE ONE TABLET IN MOUTH EVERY 8 HOURS NEEDED FOR NAUSEA 0 08/09/20 17 Active montelukast (SINGULAIR) 10 mg tablet Take 1 tablet (10 mg total) by mouth nightly. 30 tablet 5 03/16/20 18 Active Additional Information Patient taking differently:10 mg oralNightly PRN, Reported on 11/15/2023 DOMPERIDONE, BULK, MISC 10 mg as needed. 10/09/19 10 Active multivitamin tabletIndications: Vitamin Deficiency Prevention Take 1 tablet by mouth daily Active traMADol (ULTRAM) 50 mg tablet Take 1 tablets every 6 hours as needed for pain. 40 tablet 04/23/[address] (NexIUM) 20 mg capsule Take 1 capsule (20 mg total) by mouth daily before breakfast Active Nurtec ODT tablet,disintegrat ing DISSOLVE 1 TABLET ON THE TONGUE EVERY OTHER DAY FOR HEADACHE PREVENTION Active lisdexamfetamine (VYVANSE) 50 mg capsule 40 mg 10/16/19 24 Active biotin 10 mg tablet 07/22/20 23 Active cyanocobalamin, vitamin B-12, (B-12 Compliance) 1,000 mcg/mL kit 12/08/19 23 Active lidocaine (XYLOCAINE) 5 % ointment APPLY TOPICALLY THREE TIMES DAILY NEEDED 09/22/20 23 Active loratadine (Claritin) 10 mg tablet 08/29/20 22 Active traZODone (DESYREL) 100 mg tablet Take 1 tablet (100 mg total) by mouth nightly as needed 09/19/20 23 Active miSOPROStoL (CYTOTEC) 200 mcg tablet Insert 1 tablet (200 mcg total) into the vagina nightly Insert 1 tablet into the vagina 2 nights before procedure, insert second tablet into the vagina the night before procedure. 2 tablet 07/11/20 24 Active Active Problems Problem Noted Date Diagnosed Date Hx of colonic polyps 11/17/2023 Assessment & Plan (11/17/2023 9:05 PM CELLAR WORKER): Mother with hx of polyps Colonoscopy 2012 with polyps per patient, follow up colonoscopy 2017 with external hemorrhoids otherwise normal TI and colon Plan Will schedule colonoscopy Other hemorrhoids 11/15/2023 Rotator cuff tendinitis, left 12/24/2020 Assessment & Plan (12/24/2020 3:54 PM CDT): Patient has developed rotator cuff tendinitis on her left side. This may be from overuse compensating for the right period currently right side is doing reasonably well. After reviewing the treatment options she elected undergo a cortisone injection. If the radicular issues in the arm do not baljinder further workup the neck may be indicated. Normal eye exam 11/04/2020 Assessment & Plan (11/04/2020 3:55 PM CELLAR WORKER): Patient deferred DFE today, grossly unremarkable views both eyes (OU). Educated on importance Refractive error 11/04/2020 Assessment & Plan (11/04/2020 3:56 PM CELLAR WORKER): Minimal changes to MRx, New SRx PRN Trial DT1 monovision (right eye (OD) distance) -6.50 -4.75 Bright red blood per rectum 07/13/2020 Gastro-esophageal reflux disease without esophag itis 07/13/2020 Right rotator cuff tendinitis 07/13/2020 Assessment & Plan (07/13/2020 10:56 AM CDT): Patient clinically has developed recurrent rotator cuff tendinitis. She has known by MRI to have possible slap lesion but does not have gross instability or history of dislocation. The patient elected undergo a cortisone injection today after reviewing the treatment options. She responded to this three years ago. Postoperative stitch abscess 06/06/2019 Peroneal tendon tear, right, subsequent encounte r 05/22/2019 Primary osteoarthritis of both knees 04/18/2019 Assessment & Plan (08/30/2022 9:27 AM CELLAR WORKER): Patient has moderate degenerative changes of the knees most pronounced at the patellofemoral groove. She most likely should avoid high impact activities lunges and squats. I would encourage low-impact exercise on a regular basis and keeping her weight down is definitely beneficial. After reviewing the treatment options patient elected undergo cortisone injections for her knees today. She tolerated the procedures well. Assessment & Plan (04/18/2019 9:49 AM CDT): Patient was offered cortisone injections for her knee pains but with her upcoming surgery of her foot she wanted to wait until afterwards. Trigger thumb of right hand 04/18/2019 Assessment & Plan (06/25/2019 12:16 PM CDT): The patient has overt locking of her thumb with associated likely volar retinacular ganglion cyst that is growing. As such would recommend surgical decompression. She wants to wait until the end of the year for her surgery. Voltaren Gel was prescribed which may be helpful Assessment & Plan (04/18/2019 9:50 AM CDT): Patient has developed locking of her right thumb is likely facing decompressive surgery as she also has a ganglion cyst associated with the tendon sheath or mass on the thumb. Would recommend excisional biopsy of the mass with trigger thumb release. However the patient also has symptoms compatible with carpal tunnel and pending results of her nerve study with coordinatet care for right hand Peroneal tendonitis, left 01/15/2019 Assessment & Plan (01/15/2019 8:44 AM CDT): Patient is developing nearly identical symptoms on the left side. She has reduced her workload which may be helpful. We will have physical therapy working on both sides. Bilateral pes planus 01/15/2019 Assessment & Plan (01/15/2019 8:45 AM CDT): Patient has noted some progression of her pes planus bilaterally. If she does not respond to therapy orthotics and/or other considerations may be needed Peroneal tendonitis, right 10/25/2018 Assessment & Plan (01/15/2019 8:44 AM CDT): Patient is having ongoing symptoms with the the right side being the most symptomatic. She normally is wearing her support which helps to a degree. I have enrolled her in physical therapy to see would benefit they can provide. Ultrasound and other modalities may be beneficial. If she is not making substantial headway with therapy along she was advised to get in and see our foot ankle subspecialist Assessment & Plan (10/25/2018 8:46 AM CELLAR WORKER): Patient has peroneal tendinitis of the right lower extremity. This can be seen with inflammatory arthropathies. Would recommend a follow-up CR P DON and rheumatoid factor be obtained. A lace-up ankle support was provided for better protection. If she has persistent swelling despite the support further workup with an MRI may be indicated to rule out tearing of the peroneal tendon Glenoid labral tear, right, initial encounter Assessment & Plan (09/04/2017 11:49 AM CELLAR WORKER): Patient most likely has a degenerative tear of the labrum as she has no history of dislocation and is not grossly unstable. Physical therapy to stabilize the shoulder may be beneficial Right carpal tunnel syndrome 09/04/2017 Assessment & Plan (06/25/2019 12:15 PM CDT): Patient had EMG and nerve conduction studies confirm carpal tunnel on the right side. She has had symptoms present for over a year now and is not going away conservative measures. She wants proceed with carpal tunnel release but she does not have PTO time available after recently undergoing her a foot ankle surgery. She wants to wait till the end of the year. She was encouraged to wear her wrist control splint and will prescribe Voltaren gel. Assessment & Plan (04/18/2019 9:56 AM CDT): Symptomatically the patient most likely has carpal tunnel syndrome. She may have had a false-positive and a previous nerve study but it was a number of years ago in her symptoms have progressed. Would recommend obtaining an updated EMG nerve conduction study. In the event she has carpal tunnel decompressive surgery is likely indicated in at the time of her wrist surgery could have her thumb treated as well. Assessment & Plan (09/04/2017 12:02 PM CELLAR WORKER): Patient's symptoms are suggestive early carpal tunnel. A night splint was issued for her to use at nighttime which may help with sleeping comfort Arthritis of right knee 09/04/2017 Assessment & Plan (09/04/2017 11:56 AM CELLAR WORKER): Reactive synovitis of the right knee is more primarily secondary to her patellofemoral issues. A cortisone may be helpful. She should avoid heavy lifting Attention deficit hyperactiv ity disorder (ADHD), predominantly inattentive type 07/24/2017 Assessment & Plan (03/18/2018 10:20 AM CDT): Will lower adderall 25 mg BID. Hope will help with symptoms but prevent trmors. Assessment & Plan (07/24/2017 6:20 PM CDT): Start Adderall 10 mg BID. To call in few weeks with progress with medication. May need dose adjusted or agent changed. BMI 26.0-26.9,adult 07/24/2017 Assessment & Plan (03/18/2018 10:22 AM CDT): Weight and BMI stable. Assessment & Plan (07/24/2017 6:24 PM CDT): Weight stable over the last year. Pt aware of importance of proper caloric intake. Post-menopausal bleeding 05/01/2017 Assessment & Plan (05/01/2017 9:51 PM CDT): Schedule a pelvic ultrasound and await results; check a FSH along with previously mention labs and await results; encourage patient to keep a diary of any future bleeding and call office. Cervical stenosis (uterine cervix) 05/01/2017 Assessment & Plan (05/01/2017 9:52 PM CDT): Would like to perform a Pap smear but and able to pass cervical pap brush; schedule Pap in will have patient use Cytotec 200 mcg, 1 tab inserted into vagina at , 2 nights before Pap smear procedure. Varicose veins of lower extremity 06/22/2015 Overview (01/12/2017): Lower extremity varicose veins Gastroparesis 12/04/2014 Overview (01/12/2017): Gastroparesis Assessment & Plan (11/17/2023 9:01 PM CELLAR WORKER): Gastric residual of 24% at 4 hours on gastric emptying study from 01/2009 Occasional nausea, takes zofran as needed Takes domperidone as needed, feels like she tolerates it much better than Reglan Plan Overall well controlled Continue prn zofran and domperidone Gp diet Assessment & Plan (03/18/2018 10:12 AM CDT): Plan to restart miralax daily. Common migraine without aura 11/04/2014 Migraine 04/22/2014 Overview (01/12/2017): MIGRNE UNSP WO NTRC MGRN Constipation 02/22/2014 Overview (01/12/2017): Constipation Assessment & Plan (11/17/2023 9:05 PM CELLAR WORKER): Chronic constipation with a lot of straining, intermittent streaks of blood with stool likely from hemorrhoids or anal fissure takes daily miralax as needed with some relief Labs from 06/20/2023 showed normal CBC, CMP, TSH Normal DON, CRP, ESR 2018 Normal TSH and free T4 2016 Colonoscopy 2012 with polyps per patient, follow up colonoscopy 2017 with external hemorrhoids otherwise normal TI and colon Plan Start taking miralax daily and add fiber supplement to regulate BM Schedule colonoscopy Arthralgia 02/22/2014 Overview (01/12/2017): Arthralgia Atopic rhinitis 02/22/2014 Overview (01/12/2017): ALLERGIC RHINITIS NOS Genital herpes simplex 02/22/2014 Overview (01/13/2017): GENITAL HERPES NOS Myopathy 02/22/2014 Overview (01/13/2017): MYALGIA AND MYOSITIS NOS Celiac disease 02/22/2014 Overview (01/13/2017): CELIAC DISEASE Assessment & Plan (11/17/2023 9:00 PM CELLAR WORKER): Mostly compliant with gluten free diet Mild cramping with eating No issues with diarrhea, has chronic constipation EGD path from 2008 showed mild increase in intraepithelial lymphocytes in duodenum and mild chronic inflammation in the stomach EGD from 2017 showed small hiatal hernia, reactive changes in stomach and normal duodenum with no signs of celiac Labs from 06/20/2023 showed normal CBC, CMP, TSH Normal celiac serology per patient, could not locate records Plan Continue gluten free diet Schedule EGD Check TTG IgA and total IgA Fibromyalgia 07/09/2012 Overview (01/12/2017): Fibromyalgia Assessment & Plan (03/18/2018 10:14 AM CDT): Plan to check ESR, C-reactive protein, DON, RF, AntiCCP and Vitamin D. Using tramadol prn. Assessment & Plan (07/24/2017 6:18 PM CDT): Plan to increase Tiazanidine 4 mg to TID prn. Using Tramadol prn. Abnormal C-reactive protein 07/09/2012 Overview (01/12/2017): Elevated C-Reactive Protein (CRP) Resolved Problems Problem Noted Date Diagnosed Date Resolved Date Right rotator cuff tendinitis 09/04/2017 03/18/2018 Assessment & Plan (09/04/2017 11:49 AM CELLAR WORKER): Patient's exam is consistent with rotator cuff tendinitis. Cortisone injection was given through a sterile field and she was enrolled in physical therapy Right shoulder pain 07/24/2017 03/18/20 18 Assessment & Plan (07/24/2017 6:19 PM CDT): Chronic with limited mobility and strength. Addressed concern of possible torn rotator cuff. Will arrange MRI of right shoulder. Patellofemoral pain syndrome 11/24/2016 03/18/2018 Overview (01/12/2017): Patellofemoral arthralgia of both knees Assessment & Plan (09/04/2017 11:49 AM CELLAR WORKER): Patient was given a follow-up cortisone injection of the right knee. She tolerated the procedure well. She should avoid high impact activities repetitive climbing Encounters Date Type Department Care Team Description 12/27/2024 10:43 AM CDT - 12/27/2024 11:59 PM CDT Hospital Encounter [facility] - Imaging [address] [place] [address] Hormone replacement therapy Discharge Disposition: Discharge to home or self care 12/26/2024 3:33 PM CDT - 12/26/2024 11:59 PM CDT Hospital Encounter [facility] [address] [place] [address] Screening mammogram, encounter for Discharge Disposition: Discharge to home or self care from Last 3 Months Immunizations Immunization Administration Dates Next Due Influenza, Quadrivalent, Arleen l Culture-based MDCK, Preservative Free, Antibiotic Free, Intramuscular 09/14/2021 Influenza, Quadrivalent, Rec ombinant, Egg Free, Preservative Free, Intramuscular 06/23/2023 Influenza, Quadrivalent, Spl it, Preservative Free, Intramuscular 07/16/2022,07/01/2019,07/24/2017,06/22,07/17/2013,06/28/2012 Influenza, Trivalent, IM (MDV) 07/09/2013,2012 Td, adsorbed 10/24/1995 Surgical History Surgery Date Site/Laterality Comments TONSILLECTOMY Tonsillectomy OTHER SURGICAL HISTORY Varicose veins-Reflux in the L greater saphenous vein: Plan endovenous laser treatment OTHER SURGICAL HISTORY Gastroparesis: Miralax and domperidone OTHER SURGICAL HISTORY 10/09/2006 - 10/08/2007 celiac disease OTHER SURGICAL HISTORY 10/09/2005 - 10/08/2006 gastroparesis TONSILLECTOMY 10/09/1999 - 10/08/2000 tonsillectomy AUGMENTATION MAMMOPLASTY 10/09/2013 - 10/08/2014 Bilateral Breast Augmentation BREAST CYST EXCISION RT NIPPLE AREA,,NO SCAR FOOT SURGERY 04/23/2019 Right repair right peroneal tendon - Right AUGMENTATION MAMMAPLASTY 10/09/2016 - 10/08/2017 Bilateral COLONOSCOPY 10/09/2016 - 10/08/2017 COLONOSCOPY 05/23/2024 UPPER GASTROINTESTINAL ENDOSCOPY 05/23/2024 Medical History Medical History Date Comments Hx Other Medical HSV2 Hx Other Medical R breast cyst History of multiple allergies Al lergies Hx Other Medical 2009 Varicose veins- Reflux in the L greater saphenous v Osteoarthritis of both knees Trigger finger Peroneal tendonitis Peroneal tendon tear Celiac disease Seasonal allergies GERD (gastroesophageal reflux disease) Constipation Anxiety ADHD (attention deficit hype ractivity disorder) Colon polyp Family History Medical History Relation Name Comments Migraines Brother 1 X2 Migraines; Other Brother 1 X2 Mitral Valve Pr oplase; Asthma Brother 2 Asthma; Heart disease Father Heart disease; Hyperlipidemia Father Hyperlipidemi a; Hypertension Father Hypertension; Macular degeneration Father Rheum arthritis Father Rheumatoid a rthritis; /Rheumatoid arthritis; Stroke Father Stroke; Colon polyps Mother Hyperlipidemia Mother Hyperlipidemi a; Osteoporosis Mother Osteoporosis; Other Mother Hypothyroidism/ TIA; /MVP; /Fibrocystic breast disease; Stroke Mother Thyroid disease Mother Thyroid dise ase; Other Other 5 thyroid problem ; Heart disease Other 6 heart disease; Hypertension Other 7 htn; Other Other 8 mvp; Other Sister 2 Alive and well; Breast cancer Neg Hx Diabetes Neg Hx Glaucoma Neg Hx Ovarian cancer Neg Hx Pancreatic cancer Neg Hx Prostate cancer Neg Hx Retinal detachment Neg Hx Relation Name Status Comments Brother 1 X2 Brother 2 Father Alive Mother Other 1 Alive Other 2 Alive Other 3 Alive Other 4 Alive Other 5 Other 6 Other 7 Other 8 Sister 1 Alive Sister 2 Social History Tobacco Use Types Packs/Day Years Used Date Smoking Tobacco: Never Smokeless Tobacco: Never Tobacco Cessation:Counseling Given: Not Answered Alcohol Use Standard Drinks/Week Comments Yes 0 (1 standard drink = 0.6 oz pur e alcohol) Social AUDIT-C Answer Date Recorded Q1: How often do you have a drink containing alc ohol? Monthly or less 05/21/2024 Average Number of Drinks Not on file 024 Frequency of Binge Drinking Not on file 05/09 PHQ-2 Answer Date Recorded PHQ-2 Total Score (If total score is 3 or more points, staff should administer the PHQ-9) 0 08/12/2022 Personal Safety Answer Date Recorded Have you ever been in or are you currently in a harmful physical or emotional relationship or is someone making you feel afraid or unsafe? 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 Not on file Not on file Obstetrics History Para Term AB IAB SAB Ectopic Multiple Livin g Live Births 0 0 0 0 0 0 0 0 0 0 0 Last Filed Vital Signs Vital Sign Reading Time Taken Comments Blood Pressure 120/74 05/23/2024 1:15 PM CDT Pulse 60 05/23/2024 1:15 PM CDT Temperature 36.6 C (97.8 F) 05/23/2024 11:21 AM CDT Respiratory Rate 18 05/23/2024 1:15 PM CDT Oxygen Saturation 100% 05/23/2024 1:15 PM CDT Inhaled Oxygen Concentration - - Weight 67.6 kg (149 lb) 12/26/2024 3:58 PM CDT Height 172.7 cm (5' 7.99 ) 12/26/2024 3:58 PM CD T Body Mass Index 22.66 12/26/2024 3:58 PM CDT Plan of Treatment Health Maintenance Due Date Last Done Comments Hepatitis B Screening 1990 DTaP/Tdap/Td Vaccine (1 - Tdap) 10/25/1995 10/24/1995 Zoster Vaccine (1 of 2) 2022 Cervical Cancer Screening 08/12/20232021, 07/27/2021, 10/24/2018, Additional history exists Depression Screening 08/12/2023 08/12/2022, 07/27/2021, 07/23/2020, Additional history exists Regular Well Visit/Exam 18-64 08/12/2023 08/12/2022, 07/27/2021, 07/23/2020, Additional history exists Covid-19 Vaccine ( season) 2024 09/02/2023, 07/16/2022, 09/14/2021, Additional history exists Influenza Vaccine (Season Ended) 2025 06/23/2023, 07/16/2022, 09/14/2021, Additional history exists Breast Cancer Screening-Mammogram 12/26/2025 12/26/2024, 09/21/2023, 06/04/2022, Additional history exists Colon Cancer Screening-Colonoscopy 05/23/2034 05/23/2024 Hepatitis C Screening Completed 08/19/2022 , 08/10/2017, 04/20/2017, Additional history exists Pneumococcal vaccine <65 Aged Out No longer eligible based on patient's age to complete this topic Procedures Procedure Name Priority Date/Time Associated Diagnosis Comments US PELVIS W ENDOVAGINAL Schedule Routine, Read Routine (OP Routine) 12/27/2024 11:17 AM CDT Hormone replacement therapy SCREENING MAMMOGRAM BILATERAL W BRIAN W IMPLANTS Schedule Routine, Read Routine (OP Routine) 12/26/2024 4:12 PM CDT Screening mammogram, encounter for COLONOSCOPY 05/23/2024 11:16 AM CDT HEPATITIS C ANTIBODY Routine 08/19/2022 2:27 PM CELLAR WORKER Screening examination for STD (sexually transmitted disease) PAP AND HIGH RISK HPV, REFLEX TO GENOTYPING Routine 08/12/2022 1:36 PM CDT from Last 3 Months or Most Recently Relevant to Health Maintenance Results * US Pelvis W Endovaginal (12/27/2024 11:17 AM CDT) Anatomical Region Laterality Modality Pelvis N/A Ultrasound 12/27/2024 11:3 8 AM CDT Impressions 12/27/2024 11:38 AM CDT 1. Thickened endometrium measuring up to 16 mm. There is fluid in the endocervical canal. Sonographic surveillance is recommended. 2. Nonvisualization of the ovaries. 3. Small amount of free fluid in the cul-de-sac. Electronically signed by: Dario Maldonado M.D. Narrative 12/27/2024 11:38 AM CDT EXAM: US PELVIS W ENDOVAGINAL CLINICAL HISTORY: Hormone replacement therapy COMPARISON: None available. TECHNIQUE: Transabdominal and endovaginal techniques were used. FINDINGS: Uterus: The uterus is anteverted. The uterus measures 6.9 x 2.7 x 2.8 cm. There is fluid in the endocervical canal appreciated. The endometrial echo complex appears to be thickened measuring up to 16 mm. Clinical correlation is recommended. At the very least, sonographic follow-up in 6-12 weeks is recommended. The ovaries are not visualized on this examination. There is no evidence of adnexal mass. Fluid: There is a small amount of free fluid in the cul-de-sac. Procedure Note Dario Maldonado MD - 12/27/2024 EXAM: US PELVIS W ENDOVAGINAL CLINICAL HISTORY: Hormone replacement therapy COMPARISON: None available. TECHNIQUE: Transabdominal and endovaginal techniques were used. FINDINGS: Uterus: The uterus is anteverted. The uterus measures 6.9 x 2.7 x 2.8 cm. There is fluid in the endocervical canal appreciated. The endometrial echo complex appears to be thickened measuring up to 16 mm. Clinical correlation is recommended. At the very least, sonographic follow-up in 6-12 weeks is recommended. The ovaries are not visualized on this examination. There is no evidence of adnexal mass. Fluid: There is a small amount of free fluid in the cul-de-sac. IMPRESSION: 1. Thickened endometrium measuring up to 16 mm. There is fluid in the endocervical canal. Sonographic surveillance is recommended. 2. Nonvisualization of the ovaries. 3. Small amount of free fluid in the cul-de-sac. Electronically signed by: Dario Maldonado M.D. us Yariel German MD IM US PROCEDURES Final Resu lt * Screening Mammogram Bilateral W Brian W Implants (12/26/2024 4:12 PM CDT) Anatomical Region Laterality Modality Breast Bilateral Mammography 12/27/2024 9:58 AM CDT Impressions 12/27/2024 9:58 AM CDT No evidence of malignancy in either breast. FINAL ASSESSMENT: BI-RADS Category 2: Benign. RECOMMENDATION: Recommend return for annual screening mammogram in 12 months. Electronically signed by: Jadyn Sutton M.D. Narrative 12/27/2024 9:58 AM CDT EXAMINATION: BILATERAL SCREENING MAMMOGRAM COMPARISON: All prior mammograms dating back to 2019. TECHNIQUE: Full-field 2D and digital breast tomosynthesis (DBT) images were obtained. CAD was utilized. BREAST PARENCHYMAL COMPOSITION: The breasts are heterogenously dense, which may obscure small masses. FINDINGS: There is no suspicious mass, calcification, or distortion in either breast. Silicone breast implants are unchanged in contour. us Yariel German MD IMG MAMMO PROCEDURES Final R esult * Colonoscopy (05/23/2024 11:16 AM CDT) Anatomical Region Laterality Modality Other Narrative Procedure Note Connor Alexander MD - 05/23/2024 11:16 AM CDT [facility] Patient Name: Paige Mao Procedure Date: 05/23/2024 11:16 AM Date of : 1970 Admit Type: Outpatient Age: 53 Gender: Female Attending MD: Connor Alexander M.D. Room: [facility] ENDOSCOPY ROOM 2 Note Status: Finalized Patient Profile: This is a 53 year old female h/o celiac disease, gastroparesis, chronic constipation here for EGDand colonoscopy to follow up on celiac disease andcolon polyp surveillance. TTG IgA was mildly elevated at6 from 11/2023 on gluten free diet. Patient is doingwell GI galeano with no active issues at this time. Colonoscopy 2012 with polyps per patient, follow up colonoscopy 2016 with external hemorrhoidsotherwise normal TI and colon. Mother with polyps. Procedure: Colonoscopy Indications: Colon cancer screening in patient at increasedrisk: Family history of 1st-degree relative with colon polyps, High risk colon cancer surveillance:Personal history of colonic polyps, Last colonoscopy: 2017 Referring MD: Connor Alexander M.D., Leydi Montano D.O. Providers: Connor Alexander M.D. Impression: - Two 4 to 5 mm polyps in the descending colon andin the transverse colon, removed with a cold snare. Resected and retrieved. - A few erosions in the rectum that could berelated to NSAID use. Biopsied. - External and internal hemorrhoids. - The examination was otherwise normal. Biopsieswere taken with a cold forceps from the entire colon for evaluation of microscopic colitis given celiacdisease. Recommendation: - Patient has a contact number available for emergencies. The signs and symptoms of potential delayed complications were discussed with thepatient. Return to normal activities tomorrow. Written discharge instructions were provided to thepatient. - Discharge patient to home (with escort). - Resume previous diet. - No ibuprofen, naproxen, or other non-steroidal anti-inflammatory drugs. - Continue present medications. - Await pathology results. - Repeat colonoscopy in 5 years for surveillancebased on pathology results. - Return to GI clinic as previously scheduled. Medicines: Monitored Anesthesia Care Complications: No immediate complications. Estimated Blood Loss: Estimated blood loss was minimal. Procedure: Pre-Anesthesia Assessment: - Prior to the procedure, a History and Physicalwas performed, and patient medications and allergieswere reviewed. The patient is competent. The risks and benefits of the procedure and the sedation optionsand risks were discussed with the patient. Allquestions were answered and informed consent was obtained. Patient identification and proposed procedure were verified by the physician, the tile roofer and the prosthetics technician in the endoscopy suite. Mental Status Examination: normal. Prophylactic Antibiotics: The patient does not require prophylactic antibiotics. Prior Anticoagulants: The patient has taken no anticoagulant or antiplatelet agents. Afterreviewing the risks and benefits, the patient was deemed in satisfactory condition to undergo the procedure.The anesthesia plan was to use monitored anesthesiacare (MAC). Immediately prior to administration of medications, the patient was re-assessed foradequacy to receive sedatives. The heart rate, respiratory rate, oxygen saturations, blood pressure, adequacyof pulmonary ventilation, and response to care were monitored throughout the procedure. The physical status of the patient was re-assessed after the procedure. The benefits, risks and alternatives of theprocedure and sedation were discussed and informed consentwas obtained. All questions were answered. Please referto the signed informed consent document in the medical record. The scope was passed under direct vision.The Pediatric Colonoscope PCF-H190L [id number] was introduced through the anus and advanced to the the cecum, identified by appendiceal orifice andileocecal valve. The bowel preparation used was Miralax and bisacodyl tablets via extended prep with split dose instruction. The colonoscopy was performed without difficulty. The patient tolerated the procedurewell. The quality of the bowel preparation was excellent. Bowel prep was administered using a split dose. Findings: The perianal and digital rectal examinations were normal. Two flat polyps were found in the descending colon and transversecolon. The polyps were 4 to 5 mm in size. These polyps were removed with acold snare. Resection and retrieval were complete. A few diminuitive erosions were found in the rectum. Biopsies weretaken with a cold forceps for histology. External and internal hemorrhoids were found during retroflexion. The exam was otherwise without abnormality. Biopsies for histology were taken with a cold forceps from the entire colon for evaluation of microscopic colitis. Connor Alexander M.D. 05/23/2024 1:35:01 PM Number of Addenda: 0 Note Initiated On: 05/23/2024 11:16 AM Procedure Code(s): --- Professional --- 18818, Colonoscopy, flexible; with removal of tumor(s), polyp(s), or other lesion(s) by snare technique 84791, 59, Colonoscopy, flexible; with biopsy, single or multiple --- Technical --- 10501, Colonoscopy, flexible; with removal of tumor(s), polyp(s), or other lesion(s) by snare technique 04138, 59, Colonoscopy, flexible; with biopsy, single or multiple Diagnosis Code(s): --- Professional --- Z83.71, Family history of colonic polyps Z86.010, Personal history of colonic polyps D12.4, Benign neoplasm of descending colon D12.3, Benign neoplasm of transverse colon (hepatic flexure orsplenic flexure) K62.6, Ulcer of anus and rectum K64.8, Other hemorrhoids --- Technical --- Z83.71, Family history of colonic polyps Z86.010, Personal history of colonic polyps D12.4, Benign neoplasm of descending colon D12.3, Benign neoplasm of transverse colon (hepatic flexure orsplenic flexure) K62.6, Ulcer of anus and rectum K64.8, Other hemorrhoids CPT copyright 2020 [employer]. All rights reserved. The codes documented in this report are preliminary and upon school traffic guard reviewmay be revised to meet current compliance requirements. Recognized by the [employer] for promoting quality in endoscopy Connor Alexander MD ENDOSCOPY PROCEDURES Final Resul t * Hepatitis C antibody (08/19/2022 2:27 PM CELLAR WORKER) Hep C Ab <0.1 0.0 - 0.9 s/co ratio [facility] - 01 Comment: Negative: < 0.8 Indeterminate: 0.8 - 0.9 Positive: > 0.9 HCV antibody alone does not differentiate between previous resolved infection and active infection. The CDC and current clinical guidelines recommend that a positive HCV antibody result be followed up with an HCV RNA test to support the diagnosis of acute HCV infection. [facility] [facility] offers Hepatitis C Virus (HCV) RNA, Diagnosis, BENJI (151883) and Hepatitis C Virus (HCV) Antibody with reflex to Quantitative Real-time PCR (694403). Blood 08/19/2022 2:27 PM CELLAR WORKER 08/19/2022 Narrative [facility] - 08/20/2022 8:12 AM CELLAR WORKER Performed at: - Lab[address] [id number] Associate Publisher: Abisai Diaz PhD, Phone: [phone] us Dara Aguayo MANAGER GAME LAB MICROBIOLOGY - GENERA L ORDERABLES Final Result [facility] - * Pap and High Risk HPV, reflex to Genotyping (08/12/2022 1:36 PM CDT) Clinical indication Comment [facility] 02 Comment:NEGATIVE FOR INTRAEP ITHELIAL LESION OR MALIGNANCY. Specimen adequacy: Comment [facility] 02 Comment:Satisfactory for patti luation. No endocervical component is identified. Clinician provided ICD10 Comment [facility] 03 Comment: Z11.3 Z01.419 Performed by Comment [facility] 02 Comment:Huang Newman ytotechnologist (ASCP) . . [facility] 02 Note: Comment [facility] 03 Comment: The Pap smear is a screening test designed to aid in the detection of premalignant and malignant conditions of the uterine cervix. It is not a diagnostic procedure and should not be used as the sole means of detecting cervical cancer. Both false-positive and false-negative reports do occur. HPV Aptima Negative Negative [facility] - 01 Comment: This nucleic acid amplification test detects fourteen high-risk HPV types (16,18,31,33,35,39,45,51,52,56,58,59,66,68) without differentiation. HPV Genotype Reflex Comment [facility] 02 Comment:Criteria not met, HP V Genotype not performed. 08/12/2022 1:36 PM CDT 08/15/2022 Narrative [facility] - 08/19/2022 8:13 AM CELLAR WORKER Performed at: - [facility] [address] [place] [id number] Associate Publisher: Alexis Toscano MD, Phone: [phone] Performed at: Lab[address] [id number] Associate Publisher: Ledy Cowart MD, Phone: [phone] Performed at: - [facility] [address] [place] [id number] Associate Publisher: Ledy Cowart MD, Phone: [phone] Dara Aguayo MANAGER GAME LAB CYTOLOGY ORDERABLES F inal Result [facility] 02 [facility] 03 [facility] - 01 from Last 3 Months or Most Recently Relevant to Health Maintenance Insurance [facility] Advance Directives For more information, please contact: [phone] * Full Code (Latest Code Status on File) Date Activated Date Inactivated Comments 05/23/2024 11:12 AM 05/23/2024 6:01 PM * Full Code Date Activated Date Inactivated Comments 05/23/2024 11:12 AM 05/23/2024 11:12 AM Care Teams Crusher Feeder Relationship Specialty Start Date End Date Shelly Beard NP [address] [address] PCP - General Urology 11/26/24
--- OUTSIDE RECORDS SUMMARY | 2025-01-13 01:42 | XMS_ITS | Clinical Summary ---
Author Organization [facility] Address [address] [place] [address] Phone Care Team Providers Care Building Principal Name Role Phone EFRA GROSS, ODIN Castro Primary Care Provider [phone] Reason for Visit and Chief Complaint CHART UPDATE Problems Includes: Problems addressed during this encounter and other active Problems All Visits Onset Date Resolved Date Provider Condition S tatus Common Migraine Without Aura 11/04/2014 BLANCA HAYWOOD RN Chandana [facility] Active Last Documented On 5 9:04AM ; [facility] Plan of Treatment No Plan of Treatment Recorded Assessments Includes: Assessments from this encounter No Assessments Recorded Medical Equipment - Implanted Devices Includes: Current Devices No Medical Equipment Recorded Medications Includes: Medications discussed during this encounter and other current Medications New / Renewed during this visit BLANCA HAYWOOD RN OPAL on 12/21/2017 Fluconazole 150MG Oral Tablet Provider: BLANCA FRAZIER BC 2 day supply: 2 tablet, 1 refills Diagnosis: Acute sinusitis, unspecified 1 daily Pt. is to take 1 now and then repeat in 3 days Pharmacy: [facility] - [facility], [id number] - Last Documented On 8 4:01PM By BLANCA FRAZIER- ; [facility] Azithromycin 250MG Oral Tablet Provider: BLANCA FRAZIER 5 day supply: 6 tablet, 1 refills Diagnosis: Acute sinusitis, unspecified TAKE 2 TABS TODAY W/FOOD, TH EN 1 TAB DAILY W/FOOD DIRECTED Pharmacy: [facility]) - [address] [facility], [address] - Last Documented On 8 4:01PM By BLANCA KEARNS ; [facility] Current Medications (continue as prescribed) Topamax 200 MG OR TABS 11/03/2014 Provider: Diagnosis: Last Documented On 11/03/2014 9:32AM By TANIA OLIVO ; [facility] Past Medications on file Fluconazole 150MG Oral Tablet 03/10/2017 - 03/12/2017 Provider: BLANCA HAYWOOD RN OPAL Diagnosis: Acute vaginitis 1 daily Pt. is to take 1 day 4 and 1 tab day 7 Last Documented On 7 1:58PM By BLANCA KEARNS ; [facility] MetroNIDAZOLE 500MG Oral Tablet 03/10/2017 - 03/17/2017 Provider: BLANCA HAYWOOD RN OPAL Diagnosis: Acute vaginitis One tablet twice a day ONE T WICE DAILY WITH FOOD NO ETOH Last Documented On 7 12:52PM By BLANCA KEARNS ; [facility] Fluconazole 150 MG Tablet 07/26/2016 - 07/30/2016 Prov ider: BLANCA HAYWOOD RN OPAL Diagnosis: Acute vaginitis 1 daily Pt. is to take 1 now and then repeat in 3 days Last Documented On 6 8:54AM By BLANCA KEARNS ; [facility] Fluconazole 150 MG Tablet 12/31/2014 - 01/04/2015 Provider: BLANCA HAYWOOD RN OPAL Diagnosis: CANDIDAL VULVOVA GINITIS as directed TAKE ONE TAB EVERY OTHER DAY X 3 Last Documented On 5 3:49PM By BLANCA KEARNS ; [facility] Ondansetron 4 MG Tablet Dispersible 12/31/2014 - 01/30/2015 Provider: JULIANN KEARNS Diagnosis: NAUSEA WITH VOMI TING 1 po q 8 hrs prn Last Documented On 5 1:54PM By JULIANN RODRIGUEZ ISHAAN ; [facility] medroxyPROGESTERone Acetate 2.5 MG OR TABS 11/04/2014 - 02/02/2015 Provider: BLANCA HAYWOOD RN OPAL Diagnosis: Sympt [place] PLEASE DISPENSE FROM $4 LIST THANKS Last Documented On 5 9:03AM By BLANCA KEANRS ; [facility] Evamist 1.53 MG/SPRAY TD SOLN 11/04/2014 - 01/18/2015 Provider: BLANCA HAYWOOD RN OPAL Diagnosis: Sympt Fem [place] 1 SPRAY TO INNER FORARM ONCE DAILY DIRECTED Last Documented On 5 9:03AM By BLANCA HAYWOOD OPAL-BC ; [facility] Flagyl 500 MG OR TABS 12/09/2013 - 12/16/2013 Provider : JULIANN MARIO Diagnosis: VAGINITIS NOS Last Documented On 4 10:42AM By JULIANN MARIO ; [facility] Lotrisone 1-0.05% EX CREA 05/20/2013 - 07/19/2013 Prov ider: JULIANN MARIO Diagnosis: Apply externally to affected area TID Last Documented On 3 2:54PM By JULIANN MARIO ; [facility] Femhrt 1/5 1-5 MG-MCG OR TABS 08/24/2012 - 02/20/2013 Provider: JULIANN MARIO Diagnosis: Last Documented On 2 3:21PM By JULIANN MARIO ; [facility] Terazol 7 0.4% VA CREA 06/22/2012 - 07/22/2012 Provide r: JULIANN MARIO Diagnosis: Insert one applicator vagina lly q hs x 7 nocs - ok to substitute if non-formulary Last Documented On 2 2:36PM By JULIANN MARIO ; [facility] Diflucan 150 MG OR TABS 06/22/2012 - 07/22/2012 Provid er: JULIANN MARIO Diagnosis: Take one dose po x 1 and repeat in 3 days Last Documented On 2 2:36PM By JULIANN MARIO ; [facility] Flagyl 500 MG OR TABS 06/11/2011 - 06/18/2011 Provider : JULIANN MARIO Diagnosis: Last Documented On 1 11:21AM By JULIANN MARIO ; [facility] Diflucan 150 MG OR TABS 02/17/2010 - 03/19/2010 Provid er: JULIANN RODRIGUEZ OPAL- Diagnosis: take one po x 1 - may repeat in 3 days if needed . Last Documented On 0 4:46PM By JULIANN RODRIGUEZ OPAL- ; [facility] Alcortin A 1-2-1% EX GEL 01/28/2010 - 04/28/2010 Provi mer: JAYDEN HOLLOWAY OPAL-BC,CNM Diagnosis: Apply to affected area 3-4 x day Last Documented On 01/28/2010 2:04PM By CORONA HOLLOWAY ; [facility] Medications Administered Includes: Administered Medications [...] history TONSILECTO MY 11/03/2014 Last Documented On 8 4:01PM ; [facility] Medical History Includes: Medical History addressed during this encounter Description Last Updated History of menopause 11/03/2014 Last Documented On 8 4:01PM ; [facility] 0 11/03/2014 Last Documented On 8 4:01PM ; [facility] Last mammogram date: 09/23/2013 11/03/19 15 Last Documented On 8 4:01PM ; [facility] Last pap smear date 05/05/2014 11/03/2014 Last Documented On 8 4:01PM ; [facility] Result: normal 11/03/2014 Last Documented On 8 4:01PM ; [facility] History of Pap smear done 07/09/2014 Last Documented On 8 4:01PM ; [facility] Not using contraception 10/28/2014 Last Documented On 8 4:01PM ; [facility] Result: normal 10/28/2014 Last Documented On 8 4:01PM ; [facility] LMP: 07/21/2014 10/28/2014 Last Documented On 8 4:01PM ; [facility] Family History Includes: Family History addressed during this encounter Description Last Updated No family history of malignant female br east neoplasm 09/05/2011 Last Documented On 8 4:01PM ; [facility] No family history of malignant neoplasm of the large intestine 09/05/2011 Last Documented On 8 4:01PM ; [facility] No family history of malignant neoplasm of the ovary 09/05/2011 Last Documented On 8 4:01PM ; [facility] Review of Systems Includes: Review of Systems [...] Active Last Documented On 5 9:33AM ; [facility] Encounters Encounter Provider Location Date Check-In Time Check-Out Time Diagnosis CHART UPDATE BLANCA HAYWOOD RN [facility] 12/21/2017 4:00PM 11:59PM Insurance Includes: Active Insurance Policies Plan Name Member ID Group # Subscriber Relationship Effect farida Dates 1 - [facility] [id number] AMI CARRILLO Self Clinical Notes Includes: Clinical Notes from this encounter No Clinical Notes Recorded
--- OUTSIDE RECORDS SUMMARY | 2025-01-13 01:42 | XMS_ITS | Encounter Summary ---
Author Organization [facility] Address [address] [place] [address] Care Team Providers Care Rag Sorter And Cutter Name Role Phone Unavailable Primary Care Provider Unavailabl e Encounter Details Date Type Department Care Team (Late st Contact Info) Description 01/19/2009 Outpatient Historical [facility] Thierno Lucero MD NO ADDRESS ON FILE Social History Tobacco Use Types Packs/Day Years Used Date Smoking Tobacco: Never Assessed Comments Unknown Sex and Gender Information Value Date Recorded Sex Assigned at Not on file Legal Sex Female 5:43 AM FUNNEL SETTER Gender Identity Not on file Sexual Orientation Not on file documented as of this encounter Plan of Treatment Not on file documented as of this encounter Procedures Procedure Name Priority Date/Time Associated Diagnosis Comments NM GASTRIC EMPTYING Timed Study 01/19/2009 8:00 AM CDT documented in this encounter Results * NM GASTRIC EMPTYING (01/19/2009 8:00 AM CDT) Anatomical Region Laterality Modality Abdomen Other 01/19/2009 8:00 AM CDT Narrative 01/19/2009 2:22 PM CDT [address] [address] Admit Date: 01/19/2009 AMI CARRILLO Sex: F Admit Prov: ISHAAN LUCERO Date: 1970 Primary Care Prov: PCP, NONE CMRN: [id number] Room: [facility] SSN: [id number] IMAGING SERVICES Ordering Prov: N/A Accession Number: [id number] Interpretation Gastric emptying, solid meal History: Nausea loading heartburn loading. Findings: Using a standard Eggbeaters egg sandwich meal, with toast and jelly and water gastric emptying was measured over 4 hours. Gastric Percent-retained: 2 hours: 65 % (normal < 60%) 3 hours: 37 % (normal < 21%) 4 hours 24 % (normal < 10%) Imaging: There is delayed gastric emptying from the entire stomach. The stomach is somewhat elongated in character. Impression: Abnormal gastric emptying of solid meal. This is findings are consistent with gastroparesis. Dose: 0.5 mCi technetium 99m sulfur colloid in egg sandwich. . Dictated by: MONTSERRAT RAMOS 01/19/2009 14:16 Electronically signed by: MONTSERRAT RAMOS 01/19/2009 14:20 Procedure Note Montserrat Ramos MD - 01/19/2009 [facility] [place] [address], [place] [address] Admit Date: 01/19/2009 LORENAAMI Sex: F Admit Prov: ISHAAN LUCERO Date:1970 Primary Care Prov: PCP, NONE CMRN: [id number] Room: [facility] SSN: [id number] IMAGING SERVICES Ordering Prov: N/A Interpretation Gastric emptying, solid meal History: Nausea loading heartburn loading. Findings: Using a standard Eggbeaters egg sandwich meal, with toastand jelly and water gastric emptying was measured over 4 hours. Gastric Percent-retained: 2 hours: 65 % (normal < 60%) 3 hours: 37 % (normal < 21%) 4 hours 24 % (normal < 10%) Imaging: There is delayed gastric emptying from the entire stomach.The stomach is somewhat elongated in character. Impression: Abnormal gastric emptying of solid meal. This is findings are consistent with gastroparesis. Dose: 0.5 mCi technetium 99m sulfur colloid in egg sandwich. . Dictated by: MONTSERRAT RAMOS 01/19/2009 14:16 Electronically signed by: MONTSERRAT RAMOS 01/19/2009 14:20 Thierno Lucero MD NM ORDERABLES Fi nal Result documented in this encounter Visit Diagnoses Not on filedocumented in this encounter
--- OUTSIDE RECORDS SUMMARY | 2025-01-13 01:42 | XMS_ITS | Clinical Summary ---
Author Organization [facility] Address [address] [place] [address] Phone Care Team Providers Care Sports Internship Name Role Phone EFRA GROSS, ODIN Castro Primary Care Provider [phone] Reason for Visit and Chief Complaint CHART UPDATE Problems Includes: Problems addressed during this encounter and other active Problems All Visits Onset Date Resolved Date Provider Condition S tatus Common Migraine Without Aura 11/04/2014 BLANCA HAYWOOD RN Chandana P Active Last Documented On 5 9:04AM ; [facility] Plan of Treatment No Plan of Treatment Recorded Assessments Includes: Assessments from this encounter No Assessments Recorded Medical Equipment - Implanted Devices Includes: Current Devices No Medical Equipment Recorded Medications Includes: Medications discussed during this encounter and other current Medications New / Renewed during this visit BLANCA HAYWOOD RN OPAL on 03/10/2017 Fluconazole 150MG Oral Tablet Provider: BLANCA HAYWOOD RN Chandana P 2 day supply: 2 tablet, 0 refills Diagnosis: Acute vaginitis 1 daily Pt. is to take 1 day 4 and 1 tab day 7 [facility]) - [address] [place] [address], [id number] - Last Documented On 7 1:58PM By BLANCA FRAZIER- ; [facility] MetroNIDAZOLE 500MG Oral Tablet Provider: BLANCA MILLER 7 day supply: 14 tablet, 0 refills Diagnosis: Acute vaginitis One tablet twice a day ONE T WICE DAILY WITH FOOD NO ETOH Pharmacy: [facility]) - [address] [place] [address], [id number] - Last Documented On 7 12:52PM By BLANCA KEARNS ; [facility] Current Medications (continue as prescribed) Topamax 200 MG OR TABS 11/03/2014 Provider: Diagnosis: Last Documented On 11/03/2014 9:32AM By TANIA OLIVO ; [facility] Past Medications on file Fluconazole 150MG Oral Tablet 12/21/2017 - 12/25/2017 Provider: BLANCA HAYWOOD RN OPAL Diagnosis: Acute sinusitis, unspecified 1 daily Pt. is to take 1 now and then repeat in 3 days Last Documented On 8 4:01PM [facility] ; [facility] Azithromycin 250MG Oral Tablet 12/21/2017 - 12/31/2017 Provider: BLANCA HAYWOOD RN OPAL Diagnosis: Acute sinusitis, unspecified TAKE 2 TABS TODAY W/FOOD, TH EN 1 TAB DAILY W/FOOD DIRECTED Last Documented On 8 4:01PM By BLANCA KEARNS ; [facility] Fluconazole 150 MG Tablet 07/26/2016 - 07/30/2016 Prov ider: BLANCA HAYWOOD RN OPAL Diagnosis: Acute vaginitis 1 daily Pt. is to take 1 now and then repeat in 3 days Last Documented On 6 8:54AM By BLANCA KEARNS ; [facility] Fluconazole 150 MG Tablet 12/31/2014 - 01/04/2015 Provider: BLANCA HAYWOOD RN OPAL Diagnosis: CANDIDAL VULVOVA GINITIS as directed TAKE ONE TAB EVERY OTHER DAY X 3 Last Documented On 5 3:49PM By BLANCA KEARNS ; [facility] Ondansetron 4 MG Tablet Dispersible 12/31/2014 - 01/30/2015 Provider: JULIANN KEARNS Diagnosis: NAUSEA WITH VOMI TING 1 po q 8 hrs prn Last Documented On 5 1:54PM By JULIANN RODRIGUEZ ISHAAN ; [facility] medroxyPROGESTERone Acetate 2.5 MG OR TABS 11/04/2014 - 02/02/2015 Provider: BLANCA HAYWOOD RN OPAL Diagnosis: Sympt [place] P[place] DISPENSE FROM $4 LIST THANKS Last Documented On 5 9:03AM By BLANCA KEARNS ; [facility] Evamist 1.53 MG/SPRAY TD SOLN 11/04/2014 - 01/18/2015 Provider: BLANCA HAYWOOD RN OPAL Diagnosis: Sympt [place] 1 SPRAY TO INNER FORARM ONCE DAILY DIRECTED Last Documented On 5 9:03AM By BLANCA HAYWOOD OPAL-BC ; [facility] Flagyl 500 MG OR TABS 12/09/2013 - 12/16/2013 Provider : JULIANN MARIO Diagnosis: VAGINITIS NOS Last Documented On 4 10:42AM By JULIANN FRAZIER-PAUL ; [facility] Lotrisone 1-0.05% EX CREA 05/20/2013 - 07/19/2013 Prov ider: JULIANN MARIO Diagnosis: Apply externally to affected area TID Last Documented On 3 2:54PM By JULIANN MARIO ; [facility] Femhrt 1/5 1-5 MG-MCG OR TABS 08/24/2012 - 02/20/2013 Provider: JULIANN MARIO Diagnosis: Last Documented On 2 3:21PM By JULIANN MARIO ; [facility] Terazol 7 0.4% VA CREA 06/22/2012 - 07/22/2012 Provide r: JULIANN MARIO Diagnosis: Insert one applicator vagina lly q hs x 7 nocs - ok to substitute if non-formulary Last Documented On 2 2:36PM By JULIANN MARIO ; [facility] Diflucan 150 MG OR TABS 06/22/2012 - 07/22/2012 Provid er: JULIANN MARIO Diagnosis: Take one dose po x 1 and repeat in 3 days Last Documented On 2 2:36PM By JULIANN MARIO ; [facility] Flagyl 500 MG OR TABS 06/11/2011 - 06/18/2011 Provider : JULIANN MARIO Diagnosis: Last Documented On 1 11:21AM By JULIANN MARIO ; [facility] Diflucan 150 MG OR TABS 02/17/2010 - 03/19/2010 Provid er: JULIANN RODRIGUEZ OPAL- Diagnosis: take one po x 1 - may repeat in 3 days if needed . Last Documented On 0 4:46PM By JULIANN RODRIGUEZ OPAL-BC ; [facility] Alcortin A 1-2-1% EX GEL 01/28/2010 - 04/28/2010 Provi mer: JAYDEN HOLLOWAY OPAL-[facility] Diagnosis: Apply to affected area 3-4 x day Last Documented On 01/28/2010 2:04PM By CORONA HOLLOWAY ; [facility] Medications Administered Includes: [...] TONSILECTO MY 11/03/2014 Last Documented On 7 12:42PM ; [facility] Medical History Includes: Medical History addressed during this encounter Description Last Updated History of menopause 11/03/2014 Last Documented On 7 12:42PM ; [facility] 0 11/03/2014 Last Documented On 7 12:42PM ; [facility] Last mammogram date: 09/23/2013 11/03/19 15 Last Documented On 7 12:42PM ; [facility] Last pap smear date 05/05/2014 11/03/2014 Last Documented On 7 12:42PM ; [facility] Result: normal 11/03/2014 Last Documented On 7 12:42PM ; [facility] History of Pap smear done 07/09/2014 Last Documented On 7 12:42PM ; [facility] Not using contraception 10/28/2014 Last Documented On 7 12:42PM ; [facility] Result: normal 10/28/2014 Last Documented On 7 12:42PM ; [facility] LMP: 07/21/2014 10/28/2014 Last Documented On 7 12:42PM ; [facility] Family History Includes: Family History addressed during this encounter Description Last Updated No family history of malignant female br east neoplasm 09/05/2011 Last Documented On 7 12:42PM ; [facility] No family history of malignant neoplasm of the large intestine 09/05/2011 Last Documented On 7 12:42PM ; [facility] No family history of malignant neoplasm of the ovary 09/05/2011 Last Documented On 7 12:42PM ; [facility] Review of Systems Includes: Review of Systems [...] Active Last Documented On 5 9:33AM ; [facility] Encounters Encounter Provider Location Date Check-In Time Check-Out Time Diagnosis CHART UPDATE BLANCA HAYWOOD RN [facility] 03/10/2017 12:42PM 11:59PM Insurance Includes: Active Insurance Policies Plan Name Member ID Group # Subscriber Relationship Effect farida Dates 1 - [facility] [id number] AMI CARRILLO Self Clinical Notes Includes: Clinical Notes from this encounter No Clinical Notes Recorded
--- OUTSIDE RECORDS SUMMARY | 2025-01-13 01:42 | XMS_ITS ---
Care Plan - [facility] Created on: January 13, 2025 AMI CARRILLO : 1970 Sex: Female Author Organization [facility] Address [address] [place] [id number] Phone Care Team Providers Care Ward Supervisor Name Role Phone EFRA GROSS, ODIN Castro Primary Care Provider [phone]
--- OUTSIDE RECORDS SUMMARY | 2025-01-13 01:42 | XMS_ITS | Clinical Summary ---
Author Organization [facility] Address [address] [place] [address] Phone Care Team Providers Care Ceramic Products Sales Engineer Name Role Phone Citlalli Doss APN Primary Care Provider Lou vailable Allergies Active Allergy Reactions Criticality Noted Date Comments Codeine Nausea,Other (see Comments),Vomiting High 04/22/2016 Reaction: Nausea, Vomiting, , Reaction: Nausea, Vomiting, Gluten Meal Unknown Low 07/01/2019 Medications amphetamine-dex troamphetamine (ADDERALL) 12.5 MG Tablet Take 25 mg by mouth. 8 Active B Complex Capsule Take 1 Cap by mouth. 6 Active Biotin 5 MG Capsule 5 mg. 7 Active Cholecalciferol (VITAMIN D3) 1000 UNIT Tablet Take 2,500 Units by mouth. 6 Active Diclofenac 35 MG Capsule Take 35 mg by mouth. 6 Active Estradiol 1.53 MG/SPRAY Solution Apply 1 Negley. 6 Active Estradiol (EVAMIST) 1.53 MG/SPRAY Solution 2 Sprays by Transdermal route. 9 Active fluconazole (DIFLUCAN) 150 MG Tablet Take one tablet and repeat in 3 days. 9 Active fluticasone (FLONASE) 50 MCG/ACT Suspension inhale 1 spray by Intranasal route every day in each nostril BID 0 Active HYDROcodone-yuliana taminophen (NORCO) 5-325 MG Tablet 0 9 Active montelukast (SINGULAIR) 10 MG Tablet Take 10 mg by mouth. 8 Active Multiple Vitamin (MULTI-VITAMINS ) Tablet Take 1 Tab by mouth. Active olopatadine (PATANOL) 0.1 % Solution 6 Active omeprazole (PRILOSEC) 20 MG CAPSULE DELAYED RELEASE 20 mg. 9 Active ondansetron (ZOFRAN-ODT) 4 MG TABLET DISPERSIBLE DISSOLVE ONE TABLET IN MOUTH EVERY 8 HOURS NEEDED FOR NAUSEA 7 Active Probiotic Product (PROBIOTIC DAILY) Capsule Take 2 Caps by mouth. 6 Active Progesterone Micronized 200 MG Capsule Take 200 mg by mouth. 6 Active tiZANidine (ZANAFLEX) 4 MG Tablet Take 4 mg by mouth. 7 Active topiramate (TOPAMAX) 100 MG Tablet Take 100 mg by mouth. 7 Active traMADol (ULTRAM) 50 MG Tablet Take 1 tablets every 6 hours as needed for pain. 9 Active valACYclovir (VALTREX) 1 GM Tablet 6 Active methylPREDNISol one (MEDROL) 4 MG Tablet Therapy PackIndications :Acute non-recurrent maxillary sinusitis Use as per instructions on package. 21 Tab 9 Active Active Problems No known active problems Immunizations Immunization Administration Dates Next Due Influenza Vaccine, Quadrivalent, PF 07/01/2019 Social History Tobacco Use Types Packs/Day Years Used Date Smoking Tobacco: Never Smokeless Tobacco: Never Tobacco Cessation:Counseling Given: No Comments No Sex and Gender Information Value Date Recorded Sex Assigned at Not on file Legal Sex Female 11:46 PM CDT Gender Identity Not on file Sexual Orientation Not on file Last Filed Vital Signs Vital Sign Reading Time Taken Comments Blood Pressure 120/70 07/01/2019 11:00 AM CDT Pulse 77 07/01/2019 11:00 AM CDT Temperature 36.7 C (98.1 F) 07/01/2019 11:00 AM CDT Respiratory Rate 18 07/01/2019 11:00 AM CDT Oxygen Saturation 98% 07/01/2019 11:00 AM CDT Inhaled Oxygen Concentration - - Weight 91.6 kg (202 lb) 07/01/2019 11:00 AM CDT Height 172.7 cm (5' 8 ) 07/01/2019 11:00 AM CDT Body Mass Index 30.71 07/01/2019 11:00 AM CDT Plan of Treatment Health Maintenance Due Date Last Done Comments Hepatitis C Virus (HCV) Screening 1970 TdaP Immunization 1970 Hepatitis B Immunization (1 of 3 - 19+ 3-dose series) 1991 Colonoscopy 2017 Colorectal Cancer Screening 2017 Cologuard 2022 Immunochemical Fecal Occult Blood 2022 Pneumococcal Immunization (5 0+ years) (1 of 1 - PCV) 2022 Zoster Immunization (1 of 2) 2022 Influenza Immunization (#1) 2024 07/01/2019 SARS-COV-2 Immunization ( - season) 2024 09/14/2021, 11/12/2020, 10/22/2020 Respiratory Syncytial Virus (RSV) Immunization (Adult) (1 - 1-dose 75+ series) 2047 Meningococcal Immunization (ACWY) Aged Out No longer eligible b ased on patient's age to complete this topic Rotavirus Immunization Aged Out No lo nger eligible based on patient's age to complete this topic Care Teams Ceramic Products Sales Engineer Relationship Specialty Start Date End Date Citlalli Doss APN PCP - General Advanced Practice Nurse 11/07/15
--- OUTSIDE RECORDS SUMMARY | 2025-01-13 01:42 | XMS_ITS | Encounter Summary ---
Author Organization [facility] Address [address] [place] [address] Care Team Providers Care Bellhop Name Role Phone Unavailable Primary Care Provider Unavailabl e Encounter Details Date Type Department Care Team (Latest Contact Info) Description 04/14/2009 Outpatient Historical HIS MOHSEN Lucero, Thierno Saldivar MD NO ADDRESS ON FILE Dermatitis due to Food Taken Internally Social History Tobacco Use Types Packs/Day Years Used Date Smoking Tobacco: Never Assessed Comments Unknown Sex and Gender Information Value Date Recorded Sex Assigned at Not on file Legal Sex Female 5:43 AM WOUND CARE NURSE Gender Identity Not on file Sexual Orientation Not on file documented as of this encounter Plan of Treatment Not on file documented as of this encounter Visit Diagnoses Diagnosis Dermatitis due to food taken internally documented in this encounter
--- OUTSIDE RECORDS SUMMARY | 2025-01-13 01:42 | XMS_ITS | Clinical Summary ---
Author Organization [facility] Address [address] [place] [phone] Phone Care Team Providers Care Link Trainer Maintenance Man Name Role Phone EFRA GROSS, ODIN Castro Primary Care Provider [phone] Reason for Visit and Chief Complaint CHART UPDATE Problems Includes: Problems addressed during this encounter and other active Problems All Visits Onset Date Resolved Date Provider Condition S tatus Common Migraine Without Aura 11/04/2014 BLANCA HAYWOOD RN Chandana [facility] Active Last Documented On 5 9:04AM ; [facility] Plan of Treatment No Plan of Treatment Recorded Assessments Includes: Assessments from this encounter No Assessments Recorded Medical Equipment - Implanted Devices Includes: Current Devices No Medical Equipment Recorded Medications Includes: Medications discussed during this encounter and other current Medications New / Renewed during this visit BLANCA FRAZIER BC on 07/26/2016 Fluconazole 150 MG Tablet Provider: FREDY FRAZIER BC 2 day supply: 2 tablet, 1 refills Diagnosis: Acute vaginitis 1 daily Pt. is to take 1 now and then repeat in 3 days [facility] [place] [id number] [facility] [facility] [phone] - Last Documented On 6 8:54AM By BLANCA MARIO ; [facility] Current Medications (continue as prescribed) Topamax 200 MG OR TABS 11/03/2014 Provider: Diagnosis: Last Documented On 11/03/2014 9:32AM By TANIA OLIVO ; [facility] Past Medications on file Fluconazole 150MG Oral Tablet 12/21/2017 - 12/25/2017 Provider: BLANCA FRAZIER Diagnosis: Acute sinusitis, unspecified 1 daily Pt. is to take 1 now and then repeat in 3 days Last Documented On 8 4:01PM By BLANCA HAYWOOD ISHAAN ; [facility] Azithromycin 250MG Oral Tablet 12/21/2017 - 12/31/2017 Provider: BLANCA HAYWOOD RN OPAL Diagnosis: Acute sinusitis, unspecified TAKE 2 TABS TODAY W/FOOD, TH EN 1 TAB DAILY W/FOOD DIRECTED Last Documented On 8 4:01PM By BL[facility]CA HAYWOOD [facility] ; [facility] Fluconazole 150MG Oral Tablet 03/10/2017 - 03/12/2017 Provider: BLANCA HAYWOOD RN OPAL Diagnosis: Acute vaginitis 1 daily Pt. is to take 1 day 4 and 1 tab day 7 Last Documented On 7 1:58PM By BLANCA KEARNS ; [facility] MetroNIDAZOLE 500MG Oral Tablet 03/10/2017 - 03/17/2017 Provider: BLANCA HAYWOOD RN OPAL Diagnosis: Acute vaginitis One tablet twice a day ONE T WICE DAILY WITH FOOD NO ETOH Last Documented On 7 12:52PM By BLANCA KEARNS ; [facility] Fluconazole 150 MG Tablet 12/31/2014 - 01/04/2015 Provider: BLANCA HAYWOOD RN OPAL Diagnosis: CANDIDAL VULVOVA GINITIS as directed TAKE ONE TAB EVERY OTHER DAY X 3 Last Documented On 5 3:49PM By BLANCA HAYWOOD ISHAAN ; [facility] Ondansetron 4 MG Tablet Dispersible 12/31/2014 - 01/30/2015 Provider: JULIANN RODRIGUEZ ISHAAN Diagnosis: NAUSEA WITH VOMI TING 1 po q 8 hrs prn Last Documented On 5 1:54PM By JULIANN RODRIGUEZ [facility] ; [facility] medroxyPROGESTERone Acetate 2.5 MG OR TABS 11/04/2014 - 02/02/2015 Provider: BLANCA HAYWOOD RN OPAL Diagnosis: Sympt [place] PLEASE DISPENSE FROM $4 LIST THANKS Last Documented On 5 9:03AM By BLANCA HAYWOOD [facility] ; [facility] Evamist 1.53 MG/SPRAY TD SOLN 11/04/2014 - 01/18/2015 Provider: BLANCA HAYWOOD RN NP BC Diagnosis: Sympt Fem [place] 1 SPRAY TO INNER FORARM ONCE DAILY DIRECTED Last Documented On 5 9:03AM By BLANCA HAYWOOD OPAL- ; [facility] Flagyl 500 MG OR TABS 12/09/2013 - 12/16/2013 Provider : JULIANN FRAZIER-BC Diagnosis: VAGINITIS NOS Last Documented On 4 10:42AM By JULIANN MARIO ; [facility] Lotrisone 1-0.05% EX CREA 05/20/2013 - 07/19/2013 Prov ider: JULIANN FRAZIER-BC Diagnosis: Apply externally to affected area TID Last Documented On 3 2:54PM By JULIANN MARIO ; [facility] Femhrt 1/5 1-5 MG-MCG OR TABS 08/24/2012 - 02/20/2013 Provider: JULIANN MARIO Diagnosis: Last Documented On 2 3:21PM By JULIANN MARIO ; [facility] Terazol 7 0.4% VA CREA 06/22/2012 - 07/22/2012 Provide r: JULIANN FRAZIER-BC Diagnosis: Insert one applicator vagina lly q hs x 7 nocs - ok to substitute if non-formulary Last Documented On 2 2:36PM By JULIANN MARIO ; [facility] Diflucan 150 MG OR TABS 06/22/2012 - 07/22/2012 Provid er: JULIANN FRAZIER-BC Diagnosis: Take one dose po x 1 and repeat in 3 days Last Documented On 2 2:36PM By JULIANN MARIO ; [facility] Flagyl 500 MG OR TABS 06/11/2011 - 06/18/2011 Provider : JULIANN MARIO Diagnosis: Last Documented On 1 11:21AM By JULIANN MARIO ; [facility] Diflucan 150 MG OR TABS 02/17/2010 - 03/19/2010 Provid er: JULIANN FRAZIER-BC Diagnosis: take one po x 1 - may repeat in 3 days if needed . Last Documented On 0 4:46PM By JULIANN RODRIGUZE [facility] ; [facility] Alcortin A 1-2-1% EX GEL 01/28/2010 - 04/28/2010 Provi mer: JAYDEN HOLLOWAY [facility] Diagnosis: Apply to affected area 3-4 x day Last Documented On 01/28/2010 2:04PM By CORONA HOLLOWAY ; [facility] Medications Administered Includes: Administered Medications [...] history TONSILECTO MY 11/03/2014 Last Documented On 6 8:53AM ; [facility] Medical History Includes: Medical History addressed during this encounter Description Last Updated History of menopause 11/03/2014 Last Documented On 6 8:53AM ; [facility] 0 11/03/2014 Last Documented On 6 8:53AM ; [facility] Last mammogram date: 09/23/2013 11/03/19 15 Last Documented On 6 8:53AM ; [facility] Last pap smear date 05/05/2014 11/03/2014 Last Documented On 6 8:53AM ; [facility] Result: normal 11/03/2014 Last Documented On 6 8:53AM ; [facility] History of Pap smear done 07/09/2014 Last Documented On 6 8:53AM ; [facility] Not using contraception 10/28/2014 Last Documented On 6 8:53AM ; [facility] Result: normal 10/28/2014 Last Documented On 6 8:53AM ; [facility] LMP: 07/21/2014 10/28/2014 Last Documented On 6 8:53AM ; [facility] Family History Includes: Family History addressed during this encounter Description Last Updated No family history of malignant female br east neoplasm 09/05/2011 Last Documented On 6 8:53AM ; [facility] No family history of malignant neoplasm of the large intestine 09/05/2011 Last Documented On 6 8:53AM ; [facility] No family history of malignant neoplasm of the ovary 09/05/2011 Last Documented On 6 8:53AM ; [facility] Review of Systems Includes: Review of [...] Active Last Documented On 5 9:33AM ; [facility] Encounters Encounter Provider Location Date Check-In Time Check-Out Time Diagnosis CHART UPDATE BLANCA HAYWOOD RN [facility] 07/26/2016 8:53AM 11:59PM Insurance Includes: Active Insurance Policies Plan Name Member ID Group # Subscriber Relationship Effect farida Dates 1 - [facility] [id number] AMI CARRILLO Self Clinical Notes Includes: Clinical Notes from this encounter No Clinical Notes Recorded
--- OUTSIDE RECORDS SUMMARY | 2025-01-13 01:42 | XMS_ITS | Encounter Summary ---
Author Organization [email or web address] Address 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 Gender Identity Not on file Sexual Orientation Not on file documented as of this encounter Plan of Treatment Not on file documented as of this encounter Procedures Procedure Name Priority Date/Time Associated Diagnosis Comments PATHOLOGY Routine 04/13/2009 4:16 PM CDT documented in this encounter Results * PATHOLOGY (04/13/2009 4:16 PM CDT) FINAL REPORT [address] [address] Patient: AMI CARRILLO : 1970 Procedure Date: 04/13/2009 Accession Date: 04/13/2009 Case No: [id number] Ordering Dr: ISHAAN LUCERO Case types AW, BW, FW, NW and SH are performed by [facility] [place], [place] SURGICAL PATHOLOGY & NON-GYNECOLOGIC CYTOPATHOLOGY REPORT DIAGNOSIS SMALL INTESTINE, DUODENUM, BIOPSY: - MILD INCREASE IN INTRAEPITHELIAL LYMPHOCYTES (SEE MICROSCOPIC DESCRIPTION). STOMACH, BIOPSY: - MILD CHRONIC INFLAMMATION. Specimen Description: (1) Small bowel; (2) stomach. Operative Procedure: EGD. Patient Information/History/Di agnosis: (1) Small bowel Bx. Rule out sprue (chronic diarrhea and/or Fe-deficiency anemia). (2) Gastritis. Rule out H. pylori infection. Gross: Received are two containers labeled Ami Carrillo. Received in the first container, additionally labeled small bowel are three pieces of maldonado tissue ranging from 0.2 cm to 0.4 cm. All are submitted in block A1. Received in the second container labeled stomach is a 0.3 x 0.2 x 0.1-cm piece of maldonado tissue. It is submitted in block B1. [facility] 04.14.2009 06:28 am Microscopic: The slides are labeled [id number], Ami Carrillo. Sections of the small bowel biopsy show small intestinal mucosa with a patchy and mild increase in intraepithelial lymphocytes, extending to the tips of many villi. Overall villous architecture is relatively preserved, although there may be some degree of blunting; the orientation makes fine evaluation of villous architecture somewhat problematic. No acute inflammation, granulomas, erosions, or ulcers are seen. Intraepithelial lymphocytosis is a nonspecific finding that can be seen in celiac sprue, certain infections, some drug reactions, autoimmune disease, and in patients with Crohn disease, among many other conditions. Clinical correlation is recommended. Sections of the gastric biopsy show fundic mucosa with very mild superficial lamina propria chronic inflammation with minimal foveolar epithelial reactive change. There is no acute inflammation or focal gland damage. H. pylori organisms are not identified on H&E; immunohistochemical stain for H. pylori is negative. Note on use of immunocytochemistry reagents: This test was developed and its performance characteristic determined by [facility] [place]. It has not been cleared or approved by the U.S. Food and Drug Administration. The FDA has determined that such clearance or approval is not necessary. The test is used for clinical purpose. It should not be regarded as investigational or for research. This laboratory is certified to perform high complexity clinical testing. YES[facility]/ARNOLDO 04.14.2009 01:05 pm Staging Form: No. ELECTRONIC SIGNATURE FOR JESS LONGO MD- 04/14/09 04:20 pm INTERFACE SYSTEM 04/13/2009 4:16 PM CDT Thierno Lucero MD PATHOLOGY/CYTOLOGY ORDERABLES Final Result INTERFACE SYSTEM Refer to clinic/hospital department documented in this encounter Visit Diagnoses Not on filedocumented in this encounter
--- OUTSIDE RECORDS SUMMARY | 2025-01-13 01:42 | XMS_ITS | Patient Health Record ---
Author Organization [facility] Address [address] [place] [address] Support Name Relationship Address Phone Paige Mao Guarantor Unknown Unavailable Reason For Referral No Information Medications Medication SIG (Take, Route, Fr equency, Duration) Notes Start Date End Date Status Phentermine HCl 37.5 MG take 1 tablet (3 7.5 mg) by oral route once daily before breakfast Oral 1 Active Topamax 100 MG take 1 tablet (100 m g) by oral route 2 times per day Oral 2 Active Plan Of Treatment No Information Insurance Providers Payer Name Payer Address Payer Phone Subscriber Number Group Number Insured Name Patient Relationship to Insured Coverage Start Date Coverage End Date [place] [address] [place] [address] [id number] Paige Mao Self - patient is the insured Medical (General) History Surgical History Surgery Date(Month/Year) Ankle surgery; 2021-10-21 Breast augmentation; 2021-10-21
--- OUTSIDE RECORDS SUMMARY | 2025-01-13 01:42 | XMS_ITS | Encounter Summary ---
Author Organization [facility] Address [address] [facility] [place] [address] Care Team Providers Care Merchandising Professor Name Role Phone Thierno Lucero MD Unavailable [phone] Sayra Mcdonough MD Unavailable Leydi Montano DO Primary Care Provider Reason for Visit * Reason Comments Refill Request Encounter Details Date Type Department Care Team (Late Contact Info) Description 01/10/2025 Refill [facility] [place] [phone] [place] [address] [place] [phone] Refill Request Social History Tobacco Use Types Packs/Day Years Used Date Smoking Tobacco: Never Alcohol Use Standard Drinks/Week Comments Yes 3 (1 standard drink = 0.6 oz pur e alcohol) Sex and Gender Information Value Date Recorded Sex Assigned at Not on file Gender Identity Not on file Sexual Orientation Not on file documented as of this encounter Plan of Treatment Upcoming Encounters Date Type Department Care Team (Late Contact Info) Description 01/24/2025 8:00 AM CDT Procedure visit [facility] [facility] [address] [place] [phone] [place] [address] [place] [phone] documented as of this encounter Visit Diagnoses Not on filedocumented in this encounter Care Teams Merchandising Professor Relationship Specialty Start Date End Date Leydi Montano DO [address] [facility] [address] [place] [address] PCP - General Family Medicine 05/12/22 Thierno Lucero MD [address] [facility] [address] [place] [phone] Gastroenterology 08/24/16 [place] [address] [facility] [address] [place] [address] Endocrinology 08/24/16 documented as of this encounter
--- OUTSIDE RECORDS SUMMARY | 2025-01-13 01:42 | XMS_ITS | Referral Summary ---
Author Organization [facility] Address [address] [place] [address] Care Team Providers Care Dump Grader Name Role Phone Shelly Beard NP Primary Care Provider Encounters Date Type Department Care Team Description 12/27/2024 10:43 AM CDT - 12/27/2024 11:59 PM CDT Hospital Encounter [facility] [address] [place] [address] Hormone replacement therapy Discharge Disposition: Discharge to home or self care 12/26/2024 3:33 PM CDT - 12/26/2024 11:59 PM CDT Hospital Encounter [facility] Imaging and Radiology [address] [place] [address] Screening mammogram, encounter for Discharge Disposition: Discharge to home or self care from Last 3 Months Allergies Active Allergy Reactions Criticality Noted Date [...] day in each nostril BID 1 6 06/03/20 10 Active Additional Information Patient taking differently: [...] 11/17/2023 Assessment & Plan (11/17/2023 9:05 PM SENIOR LIVING ADVISOR): Mother with hx of polyps Colonoscopy 2012 with polyps per patient, follow up colonoscopy 2016 with external hemorrhoids otherwise normal TI and [...] 11/04/2020 Assessment & Plan (11/04/2020 3:55 PM SENIOR LIVING ADVISOR): Patient deferred DFE today, grossly unremarkable views both eyes (OU). Educated on importance Refractive error 11/04/2020 Assessment & Plan (11/04/2020 3:56 PM SENIOR LIVING ADVISOR): Minimal changes to MRx, New SRx PRN [...] 04/18/2019 Assessment & Plan (08/30/2022 9:27 AM SENIOR LIVING ADVISOR): Patient has moderate degenerative changes of the [...] subspecialist Assessment & Plan (10/25/2018 8:46 AM SENIOR LIVING ADVISOR): Patient has peroneal tendinitis of the right [...] encounter Assessment & Plan (09/04/2017 11:49 AM SENIOR LIVING ADVISOR): Patient most likely has a degenerative tear [...] well. Assessment & Plan (09/04/2017 12:02 PM SENIOR LIVING ADVISOR): Patient's symptoms are suggestive early carpal tunnel. A night splint was issued for her to use at nighttime which may help with sleeping comfort Arthritis of right knee 09/04/2017 Assessment & Plan (09/04/2017 11:56 AM SENIOR LIVING ADVISOR): Reactive synovitis of the right knee is [...] mcg, 1 tab inserted into vagina at HS, 2 nights before Pap smear procedure. Varicose veins of lower extremity 06/22/2015 Overview (01/12/2017): Lower extremity varicose veins Gastroparesis 12/04/2014 Overview (01/12/2017): Gastroparesis Assessment & Plan (11/17/2023 9:01 PM SENIOR LIVING ADVISOR): Gastric residual of 24% at 4 hours [...] Constipation Assessment & Plan (11/17/2023 9:05 PM SENIOR LIVING ADVISOR): Chronic constipation with a lot of straining, intermittent streaks of blood with stool likely from hemorrhoids or anal fissure takes daily miralax as needed with some relief Labs from 06/20/2023 showed normal CBC, CMP, TSH Normal DON, CRP, ESR 2018 Normal TSH and free T4 2016 Colonoscopy 2012 with polyps per patient, follow up colonoscopy 2016 with external hemorrhoids otherwise normal TI and [...] DISEASE Assessment & Plan (11/17/2023 9:00 PM SENIOR LIVING ADVISOR): Mostly compliant with gluten free diet Mild cramping with eating No issues with diarrhea, has chronic constipation EGD path from 2008 showed mild increase in intraepithelial lymphocytes in duodenum and mild chronic inflammation in the stomach EGD from 2016 showed small hiatal hernia, reactive changes in [...] 03/18/2018 Assessment & Plan (09/04/2017 11:49 AM SENIOR LIVING ADVISOR): Patient's exam is consistent with rotator cuff [...] knees Assessment & Plan (09/04/2017 11:49 AM SENIOR LIVING ADVISOR): Patient was given a follow-up cortisone injection of the right knee. She tolerated the procedure well. She should avoid high impact activities repetitive climbing Immunizations Immunization Administration Dates Next Due Influenza, Quadrivalent, Arleen l Culture-based MDCK, Preservative Free, Antibiotic Free, Intramuscular 09/14/2021 Influenza, Quadrivalent, Rec ombinant, Egg Free, Preservative Free, Intramuscular 06/23/2023 Influenza, Quadrivalent, Spl it, Preservative Free, Intramuscular 07/16/2022,07/01/2019,07/24/2017,06/22,07/17/2013,06/28/2012 Influenza, Trivalent, IM (MDV) 07/09/2013,2012 Td, adsorbed 10/24/1995 Social History Tobacco Use Types Packs/Day Years [...] on file Legal Sex Female 7:52 PM SENIOR LIVING ADVISOR Gender Identity Not on file Sexual Orientation Not on file 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 Not on file Not on file Last Filed Vital Signs [...] 12/26/2024 3:58 PM CDT Plan of Treatment Not on file Procedures Procedure Name Priority Date/Time Associated Diagnosis Comments US PELVIS W ENDOVAGINAL Schedule Routine, Read Routine (OP Routine) 12/27/2024 11:17 AM CDT Hormone replacement therapy SCREENING MAMMOGRAM BILATERAL W BRIAN W IMPLANTS Schedule Routine, Read Routine (OP Routine) 12/26/2024 4:12 PM CDT Screening mammogram, encounter for COLONOSCOPY 05/23/2024 11:16 AM CDT HEPATITIS C ANTIBODY Routine 08/19/2022 2:27 PM SENIOR LIVING ADVISOR Screening examination for STD (sexually transmitted disease) [...] cul-de-sac. Electronically signed by: Dario Maldonado M.D. Yariel German MD [facility] [place]ED[place] Final Resu lt * Screening [...] Silicone breast implants are unchanged in contour. Yariel German MD [facility] [place]ED[place] Final R esult * Colonoscopy (05/23/2024 11:16 AM CDT) Anatomical Region Laterality Modality Other Narrative Procedure Note Connor Alexander MD - 05/23/2024 11:[address] [facility] Patient Name: Paige Mao Procedure Date: 05/23/2024 11:16 AM Date of : 1970 Admit Type: Outpatient Age: 53 Gender: Female Attending MD: Connor Alexander M.D. Room: [facility] ENDOSCOPY ROOM 2 Note Status: Finalized Patient [...] Indications: [facility] Family history of 1st-degree relative with colon [...] procedure were verified by the physician, the solutions delivery consultant and the brewing technician in the endoscopy suite. Mental Status [...] passed under direct vision.The Pediatric Colonoscope [id number] was introduced through the anus and advanced [...] 11:16 AM Procedure Code(s): --- Professional --- 46903, Colonoscopy, flexible; with removal of tumor(s), polyp(s), or other lesion(s) by snare technique 47863, 59, Colonoscopy, flexible; with biopsy, single or multiple --- Technical --- 73907, Colonoscopy, flexible; with removal of tumor(s), polyp(s), or other lesion(s) by snare technique 00542, 59, Colonoscopy, flexible; with biopsy, single or [...] rectum K64.8, Other hemorrhoids CPT copyright 2020 [employer]. All rights reserved. The codes documented in this report are preliminary and upon health information coder reviewmay be revised to meet current compliance requirements. Recognized by the [employer] for promoting quality in endoscopy us Connor Alexander MD ENDOSCOPY PROCEDURES Final Resul t * Hepatitis C antibody (08/19/2022 2:27 PM SENIOR LIVING ADVISOR) Hep C Ab <0.1 0.0 - 0.9 s/co ratio [facility] - Comment: Negative: < 0.8 Indeterminate: 0.8 - 0.9 Positive: > 0.9 HCV antibody alone does not differentiate between previous resolved infection and active infection. The CDC and current clinical guidelines recommend that a positive HCV antibody result be followed up with an HCV RNA test to support the diagnosis of acute HCV infection. [facility] offers Hepatitis C Virus (HCV) RNA, Diagnosis, BENJI (858555) and Hepatitis C Virus (HCV) Antibody with reflex to Quantitative Real-time PCR (205730). Blood 08/19/2022 2:27 PM SENIOR LIVING ADVISOR 08/19/2022 Narrative [facility] - 08/20/2022 8:12 AM SENIOR LIVING ADVISOR Performed at: 01 - [address] [id number] Caseworker Protective Services: Abisai Diaz PhD, Phone: [phone] Dara Aguayo WATER SUPERINTENDENT LAB MICROBIOLOGY - GENERA L ORDERABLES Final Result [facility] - * Pap and [...] occur. HPV Aptima Negative Negative [facility] - Comment: This nucleic acid amplification test detects fourteen high-risk HPV types (16,18,31,33,35,39,45,51,52,56,58,59,66,68) without differentiation. HPV Genotype Reflex Comment [facility] 02 Comment:Criteria not met, HP V Genotype not performed. 08/12/2022 1:36 PM CDT 08/15/2022 Narrative [facility] - 08/19/2022 8:13 AM SENIOR LIVING ADVISOR Performed at: - [facility] [address] [place] [id number] Caseworker Protective Services: Alexis Toscano MD, Phone: [phone] Performed at: - [facility] [id number] Caseworker Protective Services: Ledy Cowart MD, Phone: [phone] Performed at: - [facility] [id number] Caseworker Protective Services: Ledy Cowart MD, Phone: [phone] Dara Aguayo WATER SUPERINTENDENT LAB CYTOLOGY ORDERABLES F inal Result [facility] - 01 from Last 3 Months or Most Recently Relevant to Health Maintenance [facility] [employer] HMO Advance Directives For more information, please contact: [phone] * Full Code (Latest Code Status on File) Date Activated Date Inactivated Comments 05/23/2024 11:12 AM 05/23/2024 6:01 PM * Full Code Date Activated Date Inactivated Comments 05/23/2024 11:12 AM 05/23/2024 11:12 AM Care Teams Dump Grader Relationship Specialty Start Date End Date Shelly Beard NP [address] [facility] [address] [place] [id number] PCP - General Urology 11/26/24
--- OUTSIDE RECORDS SUMMARY | 2025-01-13 01:42 | XMS_ITS | Encounter Summary ---
Author Organization [facility] Address [address] [place] [address] Care Team Providers Care Nut Chopper Name Role Phone Unavailable Primary Care Provider Unavailabl e Encounter Details Date Type Department Care Team (Late st Contact Info) Description 02/04/2009 Outpatient Historical HIS [facility] DAVID Lucero, Thierno Saldivar MD NO ADDRESS ON FILE Celiac Disease Social History Tobacco Use Types Packs/Day Years Used Date Smoking Tobacco: Never Assessed Comments Unknown Sex and Gender Information Value Date Recorded Sex Assigned at Not on file Legal Sex Female 5:43 AM CRISIS COUNSELOR Gender Identity Not on file Sexual Orientation Not on file documented as of this encounter Plan of Treatment Not on file documented as of this encounter Procedures Procedure Name Priority Date/Time Associated Diagnosis Comments FOLATE RBC Routine 02/04/2009 8:24 AM CDT IRON, TIBC, AND PERCENT SATURATION Routine 02/04/2009 8:24 AM CDT VITAMIN D 25 HYDROXY Routine 02/04/2009 8:24 AM CDT FERRITIN Routine 02/04/2009 8:24 AM CDT VITAMIN B12 LEVEL Routine 02/04/2009 8:2 4 AM CDT documented in this encounter Results * VITAMIN D 25 HYDROXY (02/04/2009 8:24 AM CDT) VITAMIN D, 25 OH, D2 < 4 ng/mL [facility] VITAMIN D, 25 OH, D3 48 ng/mL [facility] Comment: 25-OHD3 indicates both endogenous production and supplementation. 25-OHD2 is an indicator of exogenous sources such as diet or supplementation. Therapy is based on measurement of Total 25-OHD, with levels <20 ng/mL indicative of Vitamin D deficiency while levels between 20 ng/mL and 30 ng/mL suggest insufficiency. Optimal levels are >30 ng/mL. Lab test performed by: [facility] [id number] [place] [phone] [address] BERONICA BRAR VITAMIN D, 25 OH, TOTAL 48 20 - 100 ng/mL [facility] Blood specimen (specimen) 02/04/2009 8:24 AM CDT 02/04/2009 9:05 AM CDT Thierno Lucero MD CHEMISTRY ORDERABL ES Final Result Performing Organization Address City[facility] de Phone Number INTERFACE SYSTEM Refer to clinic/hospital department [facility] CLIA# [id number] [address] [place] [address] * FERRITIN (02/04/2009 8:24 AM CDT) FERRITIN 55 13 - 150 ng/mL [facility] Blood specimen (specimen) 02/04/2009 8:24 AM CDT 02/04/2009 9:05 AM CDT Thierno Lucero MD CHEMISTRY ORDERABL ES Final Result Performing Organization Address [facility] de Phone Number INTERFACE SYSTEM Refer to clinic/hospital department [facility] CLIA# [id number] [address] [place] [address] * FOLATE RBC (02/04/2009 8:24 AM CDT) HEMATOCRIT, FOLATE 39.1 35.5 - 44.0 % [facility] RBC FOLATE 904 >=468 ng/mL [facility] Comment:ansiDeficient: <110 ng/mL Blood specimen (specimen) 02/04/2009 8:24 AM CDT 02/04/2009 9:05 AM CDT Thierno Lucero MD CHEMISTRY ORDERABL ES COM Edited Performing Organization Address [facility] Phone Number INTERFACE SYSTEM Refer to clinic/hospital department [facility] CLIA# [id number] [address] [place] [address] * IRON AND TIBC (02/04/2009 8:24 AM CDT) IRON % SATURATION 41 15 - 50 % [facility] IRON 142 37 - 160 ug/dL [facility] TIBC 345 250 - 450 ug/dL [facility] TRANSFERRIN 272 200 - 360 mg/dL [facility] Blood specimen (specimen) 02/04/2009 8:24 AM CDT 02/04/2009 9:05 AM CDT Thierno Lucero MD CHEMISTRY ORDERABL ES Final Result Performing Organization Address [facility] Phone Number INTERFACE SYSTEM Refer to clinic/hospital department [facility] CLIA# [id number] [address] [place] [address] * VITAMIN B12 (02/04/2009 8:24 AM CDT) VITAMIN B12 649 211 - 946 pg/mL [facility] Comment: It has been reported that between 5 to 10% of patients with values between 200 and 400 pg/mL may experience neuropsychiatric and hematologic abnormalities due to occult B12 deficiency. Less than 1% of patients with values above 400 pg/mL will have symptoms. Blood specimen (specimen) 02/04/2009 8:24 AM CDT 02/04/2009 9:05 AM CDT Thierno Lucero MD CHEMISTRY ORDERABL ES Edited Performing Organization Address [facility] de Phone Number INTERFACE SYSTEM Refer to clinic/hospital department [facility] CLIA# [id number] [address] [place] [address] documented in this encounter Visit Diagnoses Diagnosis Celiac disease documented in this encounter
[2025-01-13] MEDS: LACTATED RINGERS 1,000 ML 30 ML IV CONT ×2 (09:57→11:55)
[2025-01-13] MEDS: ACETAMINOPHEN 500 MG TABLET 1000 MG PO (09:57)
[2025-01-13 09:58] VITALS: BP 118/73; PULSE 84; RESP 16; TEMP 36.6; O2SAT 100
--- NOTE | 2025-01-13 10:47 | WPDANESEPPF ---
Anes - Initial Pre Proc Eval Procedure: Operation Date: 01/13/25 11:00 Proposed Procedures p Hysteroscopy Dilation and Curettage - Yariel German MD Date/Time: 01/13/25 10:47 Surgeon: Yariel German MD Pre Op Diagnosis: endometrial hyperplasia Patient Data Age: 54 Gender: F Height: 1.73 m Weight: 68.4 kg Last Vital Signs Temp 97.8 F 01/13/25 09:58 Pulse 84 01/13/25 09:58 Resp 16 01/13/25 09:58 BP 118/73 01/13/25 09:58 Pulse Ox 100 01/13/25 09:58 O2 Del Method Room Air 01/13/25 09:58 Allergies Allergy/AdvReac Type Severity Reaction Status Date / Time codeine AdvReac Mild Skin Verified 01/13/25 09:56 Reaction Home Medications ?Medication ?Instructions ?Recorded ?Confirmed ?Type cyanocobalamin (vitamin B-12) 1,000 mcg IM WEEKLY 09/24/24 01/07/25 History 1,000 mcg/mL injection solution fluticasone propionate 50 1 spray intranasal DAILY 09/24/24 01/07/25 History mcg/actuation nasal spray,suspension ibuprofen 800 mg tablet 800 mg PO TID PRN pain #90 tabs 09/24/24 01/07/25 Rx lidocaine 5 % topical cream 1 applic topical BID PRN pain 09/24/24 01/07/25 History lisdexamfetamine 40 mg capsule 40 mg PO DAILY #30 caps 09/24/24 01/07/25 Rx (Vyvanse) meloxicam 15 mg tablet 15 mg PO DAILY 09/24/24 01/07/25 History montelukast 10 mg tablet 10 mg PO DAILY 09/24/24 01/07/25 History (Singulair) ondansetron HCl 8 mg tablet 8 mg PO Q12H PRN nausea and 09/24/24 01/07/25 History vomiting progesterone micronized 100 mg 100 mg PO QHS 09/24/24 01/07/25 History capsule rimegepant 75 mg disintegrating 75 mg PO ONCE PRN migraine headache 09/24/24 01/07/25 History tablet (Nurtec ODT) spironolactone 25 mg tablet 25 mg PO .every other day 09/24/24 01/07/25 History tramadol 100 mg tablet 100 mg PO Q6H PRN pain 09/24/24 01/07/25 History trazodone 100 mg tablet 100 mg PO QHS PRN insomnia #30 tabs 09/24/24 01/07/25 Rx tretinoin 0.1 % topical cream 1 applic topical QHS 09/24/24 01/07/25 History cholecalciferol (vitamin D3) 125 5,000 unit PO DAILY 01/07/25 01/07/25 History mcg (5,000 unit) tablet (Vitamin D3) loratadine 10 mg tablet (Allergy 10 mg PO DAILY 01/07/25 01/07/25 History Relief (loratadine)) multivitamin (Daily Multi-Vitamin 1 tablet PO DAILY 01/07/25 01/07/25 History tablet) Patient hx anesthesia problems: none Family hx anesthesia problems: none Results Review: All pre-operative results and documents have been reviewed as part of the pre-operative evaluation. [facility] Past Medical History Medical History Vitamin D deficiency Vitamin B deficiency Screening for lipid disorders Screening for thyroid disorder Wellness examination Celiac disease Migraine GERD (gastroesophageal reflux disease) ADHD Surgical History Surgical History History of breast augmentation Family History Family History Other Asthma Cerebrovascular accident Heart disease Thyroid disorder Social History Social History Smoking status: Never smoker Alcohol intake: current Substance use: never Do You Feel Safe in your Home?: Yes Lack of Transportation: No Lack of Food: Never True Current Housing: I Have Housing Concerned About Future Housing: No Difficulty Paying Gas/Electric Bills: No Difficulty Paying for Meds: No Currently Unemployed: No Education: Associate Degree Difficulty w/ Childcare or Family Care: No Living arrangements: with family Spiritual care concerns: No Anes - Eval Final PreProcedure Day of Procedure 01/13/25 10:47 Patient weight: normal Lungs: normal air movement Airway: Mallampati scale class II Neurological: alert and oriented Last oral intake: >/= 8 hours ASA classification: II Emergent: no Anesthetic plan: proceed Anesthesia type and monitoring: general GIVS and standard monitoring Results Review: All pre-operative results and documents have been reviewed as part of the pre-operative evaluation. Hx of ADHD, celiac dis. Overall excellent health. Pt reports hx of gastroparesis in the past noted on gastric emptying (several hours) but no symptoms today and last had light meal at 1900 yest. Informed Consent: The patient's anesthetic plan and its attendant risks and benefits were discussed with the patient/family/POA. Questions were solicited and answers provided to the satisfaction of the patient/family/POA.
--- NOTE | 2025-01-13 11:13 | PM.IMHP ---
H&P: HPI History of Present Illness Date/Time: 01/13/25 11:13 Chief Complaint: Abnormal pelvic ultrasound Narrative: 54 y/o G0 on hormone replacement therapy, with an endometrial thickness of 16 mm, here for D&C. Review of Systems Review of Systems: All systems reviewed & are unremarkable except as noted in HPI and below PMFSH Past Medical History Medical History Vitamin D deficiency Vitamin B deficiency Screening for lipid disorders Screening for thyroid disorder Wellness examination Celiac disease Migraine GERD (gastroesophageal reflux disease) ADHD Surgical History Surgical History History of breast augmentation Family History Family History Other Asthma Cerebrovascular accident Heart disease Thyroid disorder Social History Social History Smoking status: Never smoker Alcohol intake: current Substance use: never Do You Feel Safe in your Home?: Yes Lack of Transportation: No Lack of Food: Never True Current Housing: I Have Housing Concerned About Future Housing: No Difficulty Paying Gas/Electric Bills: No Difficulty Paying for Meds: No Currently Unemployed: No Education: Associate Degree Difficulty w/ Childcare or Family Care: No Living arrangements: with family Spiritual care concerns: No Meds Home Medications and Allergies Home Medications ?Medication ?Instructions ?Recorded ?Confirmed ?Type cyanocobalamin (vitamin B-12) 1,000 mcg IM WEEKLY 09/24/24 01/07/25 History 1,000 mcg/mL injection solution fluticasone propionate 50 1 spray intranasal DAILY 09/24/24 01/07/25 History mcg/actuation nasal spray,suspension ibuprofen 800 mg tablet 800 mg PO TID PRN pain #90 tabs 09/24/24 01/07/25 Rx lidocaine 5 % topical cream 1 applic topical BID PRN pain 09/24/24 01/07/25 History lisdexamfetamine 40 mg capsule 40 mg PO DAILY #30 caps 09/24/24 01/07/25 Rx (Vyvanse) meloxicam 15 mg tablet 15 mg PO DAILY 09/24/24 01/07/25 History montelukast 10 mg tablet 10 mg PO DAILY 09/24/24 01/07/25 History (Singulair) ondansetron HCl 8 mg tablet 8 mg PO Q12H PRN nausea and 09/24/24 01/07/25 History vomiting progesterone micronized 100 mg 100 mg PO QHS 09/24/24 01/07/25 History capsule rimegepant 75 mg disintegrating 75 mg PO ONCE PRN migraine headache 09/24/24 01/07/25 History tablet (Nurtec ODT) spironolactone 25 mg tablet 25 mg PO .every other day 09/24/24 01/07/25 History tramadol 100 mg tablet 100 mg PO Q6H PRN pain 09/24/24 01/07/25 History trazodone 100 mg tablet 100 mg PO QHS PRN insomnia #30 tabs 09/24/24 01/07/25 Rx tretinoin 0.1 % topical cream 1 applic topical QHS 09/24/24 01/07/25 History cholecalciferol (vitamin D3) 125 5,000 unit PO DAILY 01/07/25 01/07/25 History mcg (5,000 unit) tablet (Vitamin D3) loratadine 10 mg tablet (Allergy 10 mg PO DAILY 01/07/25 01/07/25 History Relief (loratadine)) multivitamin (Daily Multi-Vitamin 1 tablet PO DAILY 01/07/25 01/07/25 History tablet) Allergies Allergy/AdvReac Type Severity Reaction Status Date / Time codeine AdvReac Mild Skin Verified 01/13/25 09:56 Reaction Vital Signs Vital Signs - 24 hr 01/13/25 09:58 Temperature 36.6 C Pulse Rate 84 Respiratory Rate 16 Blood Pressure 118/73 Pulse Oximetry 100 Oxygen Delivery Room Air Exam Const: Orientation/consciousness: patient oriented x3 Other: Well-developed, well-nourished female in no acute distress. Neck: Thyroid: thyroid normal Lymphatic: no lymphadenopathy noted (in neck, axilla or inguinal nodes) Resp: Effort & Inspection: normal respiratory effort Auscultation: clear to auscultation bilaterally Cardio: Rate: regular rate Rhythm: regular rhythm Heart sounds: S1 normal heart sound present and S2 normal heart sound present GI: Other: ABD: Soft, nontender, nondistended. No guarding or rebound tenderness. No hepatosplenomegaly. : General: Yes no CVA tenderness Other: External genitalia: normal female hair distribution, without lesion. Urethral meatus: no lesion, non prolapsed. Bladder: no mass, nontender Vagina: well-estrogenized, without lesion or discharge. No cystocele or rectocele. Cervix: no lesion or discharge. Uterus: small, anteverted, freely mobile, nontender Adnexa: no mass or tenderness. Anus/perineum: no lesions, nontender Back/Spine/Pelvis: Back: no CVA tenderness Skin: General skin exam: normal color and no rashes or lesions noted Neuro: General: patient oriented x3 Extrem: Other: Extremities: nontender with no edema Psych: Mental Status: mental status grossly normal Affect: normal affect Assessment and Plan Assessment and plan (1) Abnormal pelvic ultrasound: Code(s): R93.89 - Abnormal findings on diagnostic imaging of other specified body structures Status: Acute Assessment and Plan: A: Abnormal pelvic ultrasound on HRT. P: Offered hysteroscopy with dilation and sharp curettage. She understands risks of surgery to include risks of anesthesia, risks of pain, infection, bleeding, blood products, thromboembolic phenomena and damage to adjacent structures such as bowel, bladder, ureters, blood vessels and nerves. She understands all these risks and elects to proceed with surgery.
--- NOTE | 2025-01-13 11:14 | WPDHPUPDATE1 ---
History and Physical Update Update Date/Time: 01/13/25 11:14 History and Physical has been reviewed, including an updated exam of the patient. There are NO changes in the patient's condition. Risks, benefits, and alternatives have been discussed and questions answered. Patient agrees to proceed with procedure.
[2025-01-13] MEDS: LIDOCAINE 1% LOCAL INJ 10 ML VIAL INFILTRATE (11:31)
--- NOTE | 2025-01-13 11:50 | SUR.OPER ---
fluid deficit 10
[2025-01-13 11:55] VITALS: BP 147/78; PULSE 59; RESP 18; O2SAT 100
[2025-01-13 12:15] VITALS: BP 138/81; PULSE 54; RESP 16; O2SAT 100
--- NOTE | 2025-01-13 12:16 | W.PM.PROC2 ---
Procedure Note - Detailed Date of Procedure 01/13/25 Pre-op Diagnosis Abnormal pelvic ultrasound Post-op Diagnosis Same Procedure Performed Hysteroscopy Dilation and sharp curettage Surgeon Yariel German MD Anesthesia MAC and Local (1% lidocaine) Findings Endometrial tissue thick, otherwise unremarkable. Both tubal ostia seen. Description of Procedure The patient was taken to the operating room where she was prepared and draped in the usual sterile fashion in the dorsal lithotomy position. The bladder was drained with a red rubber catheter. A sterile speculum was placed into the vagina. The anterior lip of the cervix was grasped with single-tooth tenaculum. Ten mL of 1% lidocaine was administered in a paracervical block. The cervix was then gently dilated using Hegar dilators until an 8 mm dilator could be passed. Hysteroscopy was performed using sterile saline as a distention medium. Findings are as noted above. Sharp curettage was then performed, and endometrial curettings were collected on a Telfa pad and passed off to be sent to pathology. Hemostasis was excellent. Sponge, lap, needle and instrument counts were correct. The patient was awakened and taken to the recovery room in stable condition. I was present and scrubbed through the entire procedure. Estimated Blood Loss 5 Drains No Packing No Pathology Yes (Endometrial curettings) Complications None Condition Stable Disposition PACU
[2025-01-13 12:45] VITALS: BP 140/87; PULSE 54; RESP 16
[2025-01-13] MEDS: HYDROcodone/acetaminophen (*CRX) 5-325 MG TABLET 1 TAB PO (12:53)
[2025-01-13 13:10] VITALS: BP 136/82; PULSE 53; RESP 16
== END 2025-01-13 13:22 | disposition home or self-care (01) ==
PROVIDERS: PCP Nurse Practitioner Adult Health; Visit Provider Obstetrics & Gynecology
PROC: 0U5B8ZZ Destruction of Endometrium, Via Natural or Artificial Opening Endoscopic (ICD-10-PCS; CPT 58563; principal; 2025-01-13 11:00)
DX: R93.89 Abnormal findings on diagnostic imaging of other specified body structures (principal); G89.18 Other acute postprocedural pain; E55.9 Vitamin D deficiency, unspecified; E53.8 Deficiency of other specified B group vitamins; K90.0 Celiac disease; K21.9 Gastro-esophageal reflux disease without esophagitis; F90.9 Attention-deficit hyperactivity disorder, unspecified type; Z79.1 Long term (current) use of non-steroidal anti-inflammatories (NSAID); Z79.891 Long term (current) use of opiate analgesic; Z98.890 Other specified postprocedural states; Z82.49 Family history of ischemic heart disease and other diseases of the circulatory system
CPT/HCPCS: 58558; 88305; A9270; J2003; J2250; J2704; J3010; J7120